=== PATIENT | female | born 1940 | race Caucasian/White ===

== ENCOUNTER 2020-12-12 14:30 | Observation (INO) ==
--- NOTE | 2020-12-12 14:43 | Emergency Department Note ---
Impression & Plan Acute GI bleeding, Supratherapeutic INR, Abdominal pain, History of cerebrovascular accident ED Provider Note NAME: REENA UP AGE: 80 SEX: F : 1940 ARRIVES VIA: Ambulance INFORMANT: Patient, ED PROVIDER(S): Roman Zheng MD Chief Complaint: Abdominal pain, GI bleeding HPI: Patient does present with the above complaints though the patient does have difficulty with speaking at baseline due to a concern for prior stroke 11 years ago. The patient is accompanied by family member. When further discussing the patient does not complain of chest pain shortness of breath headache nausea or vomiting. The patient is unsure that she has had blood in the urine. Patient does take Coumadin ever since the stroke. Patient is not had any fevers. The patient only had pain beginning this morning and it is described as in the lower abdomen and moving upwards. No known Covid type symptoms. The patient symptoms of stayed about the same during the day. They have not taken anything for it at home. The patient last took her Coumadin last evening. ROS: See HPI for pertinent positives and negatives. A total of 10 systems were reviewed and otherwise negative. Past medical history: See below Surgical history: See below Social history: See below Physical Exam: GENERAL: Wearing a mask. NAD, non-toxic. EYE EXAM: Normal conjunctiva. PERRL, no anisocoria and EOM's grossly intact w/o pain. NECK: Supple, no nuchal rigidity, no adenopathy, non-tender. No signs of meningismus. LUNGS: Clear to auscultation. Normal chest wall mechanics. HEART: Cardiac and regular, no MRG. ABDOMEN: Abdomen soft, mild diffuse discomfort without peritonitis, normo-active bowel sounds, no masses, no rebound or guarding. BACK: No CVA TTP. SKIN: No rashes and no bruising. Rectal: Dark reddish stool, heme positive UPPER EXTREMITIES: Upper extremities are grossly normal. LOWER EXTREMITIES: Grossly normal, no edema. NEURO EXAM: Awake and alert, follows basic commands, cranial nerves II-XII grossly intact, aphasic, moves all 4 extremities on command w/o issue. Differential diagnoses: Diverticulosis, AVM, coagulopathy, colitis, inflammatory bowel disease, malignancy, Paulette-Velazquez tear, esophagitis, peptic ulcer disease, variceal bleed, gastritis, epistaxis, fissure, hemorrhoids, as well as other pathologies. Course: Patient was seen and evaluated the bedside. Full history physical exam was performed. EKG: Indication: Possible GI bleeding Sinus tachycardia, rate of 108, normal intervals, normal axis, no obvious ST changes. Imaging Studies: See below Cardiac monitoring: An order was placed for continuous cardiac monitoring. The monitor shows a rate of 106 with sinus tachycardia rhythm. MDM: Patient did present with concern for abdominal pain and GI bleeding. The patient does take Coumadin. Patient does live by herself. Blood was obtained and the patient's initial hemoglobin is unremarkable. The patient was initially started on a PPI bolus and drip. Therefore a rectal exam which did show reddish blood but not bright red blood and was heme positive. CT negative for bowel obstruction or free air. No acute inflammatory change or evidence of diverticulitis. The patient's coags did eventually come back and are greater than 10.7. Given this with the active bleeding given in light of her normal hemoglobin the patient was ordered 10 of IV vitamin K. I did discuss the patien t with the on-call hospitalist Dr. Shea and the patient was admitted to the medicine service. I did discuss that it would likely would be of benefit to repeat hemoglobin to see if this is a sentinel bleed and whether not the patient would benefit from either PCC's and/or transfusion. Patient was admitted to the medicine service. Critical Care: I have personally spent 57 minutes of critical care time in direct management of this patient. This includes bedside care, interpretation of diagnostic studies, and testing, discussion with consultants, patient, and family members, and other require inpatient management activities. This 57 minutes is in excess of all separately billable procedures. Past Med/Surg History Medical History (Updated 12/12/20 @ 19:15 by Roman Zheng MD) Atrial fibrillation Cerebral atherosclerosis GERD (gastroesophageal reflux disease) Heart disease Hyperlipemia Hypertension Hypokalemia Stroke Social History Smoking Status: Unknown if ever smoked Feels Safe at Home: Yes Allergies Allergies Allergy/AdvReac Type Severity Reaction Status Date / Time No Known Allergies Allergy Verified 12/12/20 15:27 Home Meds Home Medications Medication Instructions Recorded Confirmed amlodipine 10 mg tablet 10 mg PO DAILY 11/22/20 12/12/20 atorvastatin 10 mg tablet 10 mg PO DAILY 11/22/20 12/12/20 ergocalciferol (vitamin D2) 1,250 50,000 unit PO DAILY 11/22/20 12/12/20 mcg (50,000 unit) capsule ezetimibe 10 mg tablet 10 mg PO DAILY 11/22/20 12/12/20 omeprazole 20 mg capsule,delayed 20 mg PO DAILY 11/22/20 12/12/20 release potassium chloride 20 mEq 20 meq PO DAILY 11/22/20 12/12/20 tablet,extended release(part/cryst) tramadol 50 mg tablet 50 mg PO Q6H PRN 11/22/20 12/12/20 warfarin 2 mg tablet 2 mg PO DAILY 11/22/20 12/12/20 Results & Data (ED) Vital Signs Vital Signs - 24 hr 12/12/20 14:37 12/12/20 14:39 12/12/20 14:40 Temperature 36.9 C Temperature Source Oral Pulse Rate 102 H 105 H 104 H Pulse Rate [Radial] 110 H Pulse Rate from SpO2 Sensor 106 H 105 H 103 H Pulse Rhythm [Radial] Regular Pulse Strength [Radial] Normal Respiratory Rate 20 18 22 Respiratory Depth Normal Blood Pressure 154/66 H Blood Pressure [Right Arm] 154/66 H Blood Pressure Mean 95 Blood Pressure Mean [Right Arm] 95 Pulse Oximetry 94 93 93 Oxygen Delivery Method Room Air Sepsis Recent Fever Within 48 Hours Sepsis New/Unexplained Change in Mental Status Sepsis Action Taken by Nursing 12/12/20 14:45 12/12/20 14:50 12/12/20 15:00 Temperature 36.9 C Temperature Source Oral Pulse Rate 110 H 110 H 110 H Pulse Rate [Radial] Pulse Rate from SpO2 Sensor 110 H Pulse Rhythm [Radial] Pulse Strength [Radial] Respiratory Rate 14 21 20 Respiratory Depth Normal Blood Pressure 154/64 H Blood Pressure [Right Arm] Blood Pressure Mean 94 Blood Pressure Mean [Right Arm] Pulse Oximetry 96 94 Oxygen Delivery Method Room Air Room Air Sepsis Recent Fever Within 48 Hours No Sepsis New/Unexplained Change in Mental Status No Sepsis Action Taken by Nursing No Action Required 12/12/20 15:10 12/12/20 15:20 12/12/20 15:30 Temperature Temperature Source Pulse Rate 102 H 119 H 102 H Pulse Rate [Radial] Pulse Rate from SpO2 Sensor 102 H 118 H Pulse Rhythm [Radial] Pulse Strength [Radial] Respiratory Rate 18 19 26 H Respiratory Depth Blood Pressure Blood Pressure [Right Arm] Blood Pressure Mean Blood Pressure Mean [Right Arm] Pulse Oximetry 93 94 Oxygen Delivery Method Sepsis Recent Fever Within 48 Hours Sepsis New/Unexplained Change in Mental Status Sepsis Action Taken by Nursing 12/12/20 15:40 12/12/20 15:50 12/12/20 16:00 Temperature Temperature Source Pulse Rate 101 H 103 H 105 H Pulse Rate [Radial] Pulse Rate from SpO2 Sensor Pulse Rhythm [Radial] Pulse Strength [Radial] Respiratory Rate 17 20 21 Respiratory Depth Blood Pressure Blood Pressure [Right Arm] Blood Pressure Mean Blood Pressure Mean [Right Arm] Pulse Oximetry Oxygen Delivery Method Sepsis Recent Fever Within 48 Hours Sepsis New/Unexplained Change in Mental Status Sepsis Action Taken by Nursing 12/12/20 16:22 12/12/20 16:23 12/12/20 16:30 Temperature Temperature Source Pulse Rate 109 H 107 H 112 H Pulse Rate [Radial] Pulse Rate from SpO2 Sensor 107 H 113 H Pulse Rhythm [Radial] Pulse Strength [Radial] Respiratory Rate 20 18 17 Respiratory Depth Blood Pressure 140/80 Blood Pressure [Right Arm] Blood Pressure Mean 100 Blood Pressure Mean [Right Arm] Pulse Oximetry 92 92 Oxygen Delivery Method Sepsis Recent Fever Within 48 Hours Sepsis New/Unexplained Change in Mental Status Sepsis Action Taken by Nursing 12/12/20 16:40 12/12/20 16:50 12/12/20 17:00 Temperature Temperature Source Pulse Rate 109 H 110 H 115 H Pulse Rate [Radial] Pulse Rate from SpO2 Sensor 109 H 110 H Pulse Rhythm [Radial] Pulse Strength [Radial] Respiratory Rate 15 21 18 Respiratory Depth Blood Pressure Blood Pressure [Right Arm] Blood Pressure Mean Blood Pressure Mean [Right Arm] Pulse Oximetry 92 92 Oxygen Delivery Method Sepsis Recent Fever Within 48 Hours Sepsis New/Unexplained Change in Mental Status Sepsis Action Taken by Nursing 12/12/20 17:10 12/12/20 17:20 12/12/20 17:30 Temperature Temperature Source Pulse Rate 108 H 108 H 121 H Pulse Rate [Radial] Pulse Rate from SpO2 Sensor 121 H Pulse Rhythm [Radial] Pulse Strength [Radial] Respiratory Rate 17 20 31 H Respiratory Depth Blood Pressure Blood Pressure [Right Arm] Blood Pressure Mean Blood Pressure Mean [Right Arm] Pulse Oximetry 94 Oxygen Delivery Method Sepsis Recent Fever Within 48 Hours Sepsis New/Unexplained Change in Mental Status Sepsis Action Taken by Nursing 12/12/20 17:40 12/12/20 17:50 12/12/20 17:59 Temperature Temperature Source Pulse Rate 108 H 104 H 101 H Pulse Rate [Radial] Pulse Rate from SpO2 Sensor 108 H 104 H 101 H Pulse Rhythm [Radial] Pulse Strength [Radial] Respiratory Rate 21 18 17 Respiratory Depth Blood Pressure 125/65 Blood Pressure [Right Arm] Blood Pressure Mean 85 Blood Pressure Mean [Right Arm] Pulse Oximetry 93 93 93 Oxygen Delivery Method Sepsis Recent Fever Within 48 Hours Sepsis New/Unexplained Change in Mental Status Sepsis Action Taken by Nursing 12/12/20 18:00 12/12/20 18:10 12/12/20 18:20 Temperature Temperature Source Pulse Rate 105 H 117 H 113 H Pulse Rate [Radial] Pulse Rate from SpO2 Sensor 105 H 117 H Pulse Rhythm [Radial] Pulse Strength [Radial] Respiratory Rate 19 25 H 15 Respiratory Depth Blood Pressure Blood Pressure [Right Arm] Blood Pressure Mean Blood Pressure Mean [Right Arm] Pulse Oximetry 93 94 Oxygen Delivery Method Sepsis Recent Fever Within 48 Hours Sepsis New/Unexplained Change in Mental Status Sepsis Action Taken by Nursing 12/12/20 18:30 12/12/20 18:40 12/12/20 18:50 Temperature Temperature Source Pulse Rate 106 H 107 H 109 H Pulse Rate [Radial] Pulse Rate from SpO2 Sensor Pulse Rhythm [Radial] Pulse Strength [Radial] Respiratory Rate 20 25 H 20 Respiratory Depth Blood Pressure Blood Pressure [Right Arm] Blood Pressure Mean Blood Pressure Mean [Right Arm] Pulse Oximetry Oxygen Delivery Method Sepsis Recent Fever Within 48 Hours Sepsis New/Unexplained Change in Mental Status Sepsis Action Taken by Nursing 12/12/20 19:00 Temperature Temperature Source Pulse Rate 106 H Pulse Rate [Radial] Pulse Rate from SpO2 Sensor Pulse Rhythm [Radial] Pulse Strength [Radial] Respiratory Rate 17 Respiratory Depth Blood Pressure Blood Pressure [Right Arm] Blood Pressure Mean Blood Pressure Mean [Right Arm] Pulse Oximetry Oxygen Delivery Method Sepsis Recent Fever Within 48 Hours Sepsis New/Unexplained Change in Mental Status Sepsis Action Taken by Longterm Medications Current Medication List: was personally reviewed by me Laboratory Data Attestation: I reviewed the patient's lab results. Result diagrams: 12/12/20 15:51 12/12/20 15:51 Lab Results 12/12/20 12/12/20 12/12/20 Range/Units 15:51 15:51 15:51 WBC 9.44 (4.8-10.8) K/uL RBC 4.64 (4.2-5.4) M/uL Hgb 13.3 (12.0-16.0) g/dL Hct 39.9 (37-47) % MCV 86.0 (80-100) fL MCH 28.7 (25-34) pg MCHC 33.3 (32-36) g/dL RDW Std Deviation 43.5 (36.4-46.3) fL RDW Coeff of Dayron 13.8 (11.5-14.5) % Plt Count 282 (130-400) K/uL MPV 10.3 (7.4-10.4) fL Immature Gran % (Auto) 0.3 % Neut % (Auto) 76.8 % Lymph % (Auto) 13.3 % [place] % (Auto) 9.2 % Eos % (Auto) 0.2 % Baso % (Auto) 0.2 % Neut # (Auto) 7.24 H (1.4-6.5) K/uL Lymph # (Auto) 1.26 (1.2-3.4) K/uL [place] # (Auto) 0.87 H (0.11-0.59) K/uL Eos # (Auto) 0.02 (0-0.5) K/uL Baso # (Auto) 0.02 (0-0.2) K/uL Immature Gran # (Auto) 0.03 H (0.00-0.02) K/uL PT Cancelled INR Cancelled APTT Cancelled PTT Ratio Cancelled Sodium (136-145) mmol/L Potassium (3.5-5.1) mmol/L Chloride (98-107) mmol/L Carbon Dioxide (21-32) mmol/L Anion Gap (3-11) BUN (7-18) mg/dl Creatinine (0.6-1.2) mg/dl Est Cr Clr Drug Dosing Est GFR ( Amer) Est GFR (Non-Af Amer) BUN/Creatinine Ratio (10-20) Glucose (70-99) mg/dl Calcium (8.5-10.1) mg/dl Total Bilirubin (0.2-1) mg/dl AST (15-37) U/L ALT (12-78) U/L Alkaline Phosphatase (45-117) U/L Total Protein (6.4-8.2) gm/dl Albumin (3.4-5.0) gm/dl Globulin (2.5-4.0) gm/dl Albumin/Globulin Ratio (0.9-2) Lipase (73-393) U/L POC Stool Occult Blood (Negative) Blood Type O Positive Antibody Screen NEGATIVE 12/12/20 12/12/20 12/12/20 Range/Units 15:51 16:45 Unknown WBC (4.8-10.8) K/uL RBC (4.2-5.4) M/uL Hgb (12.0-16.0) g/dL Hct (37-47) % MCV (80-100) fL MCH (25-34) pg MCHC (32-36) g/dL RDW Std Deviation (36.4-46.3) fL RDW Coeff of Dayron (11.5-14.5) % Plt Count (130-400) K/uL MPV (7.4-10.4) fL Immature Gran % (Auto) % Neut % (Auto) % Lymph % (Auto) % [place] % (Auto) % Eos % (Auto) % Baso % (Auto) % Neut # (Auto) (1.4-6.5) K/uL Lymph # (Auto) (1.2-3.4) K/uL [place] # (Auto) (0.11-0.59) K/uL Eos # (Auto) (0-0.5) K/uL Baso # (Auto) (0-0.2) K/uL Immature Gran # (Auto) (0.00-0.02) K/uL PT > 90.0 H INR > 10.7 H* APTT 138.3 H* PTT Ratio 5.3 Sodium 138 (136-145) mmol/L Potassium 4.5 (3.5-5.1) mmol/L Chloride 106 (98-107) mmol/L Carbon Dioxide 26 (21-32) mmol/L Anion Gap 7.0 (3-11) BUN 19 H (7-18) mg/dl Creatinine 0.56 L (0.6-1.2) mg/dl Est Cr Clr Drug Dosing Not Reportable Est GFR ( Amer) 102.8 Est GFR (Non-Af Amer) 88.7 BUN/Creatinine Ratio 33.7 H (10-20) Glucose 103 H (70-99) mg/dl Calcium 9.4 (8.5-10.1) mg/dl Total Bilirubin 0.7 (0.2-1) mg/dl AST 18 (15-37) U/L ALT 18 (12-78) U/L Alkaline Phosphatase 112 (45-117) U/L Total Protein 7.3 (6.4-8.2) gm/dl Albumin 3.3 L (3.4-5.0) gm/dl Globulin 4.0 (2.5-4.0) gm/dl Albumin/Globulin Ratio 0.8 L (0.9-2) Lipase 116 (73-393) U/L POC Stool Occult Blood Negative (Negative) Blood Type Antibody Screen Administered Medications Pantoprazole Sodium 40 mg/ (Dextrose) 100 mls @ 20 mls/hr IV Q5H ROGER Stop: 01/11/21 15:04 Last Admin: 12/12/20 16:35 Dose: 8 mg/hr, 20 mls/hr Documented by: [id number] Discontinued Medications Sodium Chloride (Nss) 500 mls @ 999 mls/hr IV .Q31M ROGER Stop: 12/12/20 15:30 Last Admin: 12/12/20 15:35 Dose: 999 mls/hr Documented by: [id number] Pantoprazole Sodium (Protonix Bolus/Drip) 0 mls @ 1 mls/hr IV ONE STA Stop: 12/12/20 14:51 Last Admin: 12/12/20 16:35 Dose: 1 mls/hr Documented by: [id number] Pantoprazole Sodium 80 mg/ (Dextrose) 120 mls @ 400 mls/hr IV NOW ONE Stop: 12/12/20 15:07 Last Admin: 12/12/20 15:34 Dose: 400 mls/hr Documented by: [id number] Phytonadione 10 mg/ Sodium (Chloride) 51 mls @ 102 mls/hr IV ONE ONE Stop: 12/12/20 18:03 Last Admin: 12/12/20 19:01 Dose: 102 mls/hr Documented by: [id number] Ioversol (Optiray 320 100ml) 89 ml IV ONCE ONE Stop: 12/12/20 16:18 Last Admin: 12/12/20 16:17 Dose: 89 ml Documented by: [id number] Imaging Data Radiologist's Impression: Abdomen/Pelvis CT 12/12/20 14:50 CT abd pelvis IV con only CLINICAL HISTORY: Abdominal pain and GI bleeding. COMPARISON STUDY: None. TECHNIQUE: The patient was scanned in a dynamic helical fashion during intravenous administration of 89 cc of Optiray 320 A dose lowering technique was utilized adhering to the principles of ALARA. CT DOSE: 318.63 mGy.cm FINDINGS: The examination is motion compromised Lower chest: The heart is normal in size and configuration, without pericardial effusion. The lung bases and pleural spaces are clear. Liver: The contrast-enhanced liver is normal in size, contour, and attenuation. There is no intrahepatic biliary ductal dilatation. The hepatic veins and portal veins are patent. Gallbladder: Contracted Spleen: Normal in size and attenuation. Pancreas: Unremarkable. Adrenal glands: There is minor adrenal gland thickening Kidneys: There is symmetric renal cortical enhancement. The kidneys are normal in size without hydronephrosis. Bowel: There are no transition zones indicate bowel obstruction. There is colonic diverticulosis. There are no acute peridiverticular inflammatory changes. By history the appendix is surgically absent. Peritoneum: There is no intraperitoneal free air or abdominal ascites. Vasculature: The abdominal aorta is normal in course and caliber. Adenopathy: None. Pelvic viscera: The uterus is surgically absent. Skeletal structures: No destructive osseous lesions are seen. IMPRESSION: 1. No evidence of bowel obstruction. No evidence of free air 2. Colonic diverticulosis. No evidence of acute diverticulitis 3. No acute inflammatory changes ACT 112: Negative or not required by law. Electronically signed by: Juan Carlos Rodriguez M.D. 12/12/2020 4:54 PM Discharge Plan Visit Data Chief Complaint: Abdominal Pain ED Provider: Roman Zheng Discharge Problem: Acute GI bleeding, Supratherapeutic INR, Abdominal pain, History of cerebrovascular accident Forms Stand Alone Forms: [employer] Prescriptions Prescriptions: No Action tramadol 50 mg tablet 50 mg PO Q6H PRN (Reason: Pain) RF: 0 ergocalciferol (vitamin D2) 1,250 mcg (50,000 unit) capsule 50,000 unit PO DAILY RF: 0 omeprazole 20 mg capsule,delayed release(DR/EC) 20 mg PO DAILY RF: 0 warfarin 2 mg tablet 2 mg PO DAILY RF: 0 ezetimibe 10 mg tablet 10 mg PO DAILY RF: 0 atorvastatin 10 mg tablet 10 mg PO DAILY RF: 0 amlodipine 10 mg tablet 10 mg PO DAILY RF: 0 potassium chloride [Klor-Con M20] 20 mEq tablet,ER particles/crystals 20 meq PO DAILY RF: 0 Discharge Problem: Abdominal pain Qualifiers: Abdominal location: generalized Qualified Code(s): R10.84 - Generalized abdominal pain
[2020-12-12] MEDS ORDERED: ONDANSETRON INJ 2 MG/ML 2 ML VIAL IV STA (14:50)
[2020-12-12] MEDS ORDERED: PANTOprazole 80 MG in DEXTROSE 5% 100 ML IV ONE (14:50)
[2020-12-12] MEDS ORDERED: PANTOPRAZOLE BOLUS/DRIP 1 EA IV STA (14:50)
[2020-12-12] MEDS ORDERED: SODIUM CHLORIDE 0.9% 500 ML IV SCH (15:00)
[2020-12-12 15:59] LABS: Basophils # (auto) 0.02 K/uL (0-0.2); Basophils % (auto) 0.2 %; Eosinophils # (auto) 0.02 K/uL (0-0.5); Eosinophils % (auto) 0.2 %; Hematocrit (blood only) 39.9 % (37-47); Hemoglobin 13.3 g/dL (12.0-16.0); Immature Granulocytes # (auto) 0.03 K/uL (0.00-0.02); Immature Granulocytes % (auto) 0.3 %; Lymphocytes # (auto) 1.26 K/uL (1.2-3.4); Lymphocytes % (auto) 13.3 %; Mean Corpuscular Hemoglobin 28.7 pg (25-34); Mean Corpuscular Hgb Conc 33.3 g/dL (32-36); Mean Platelet Volume 10.3 fL (7.4-10.4); Monocytes # (auto) 0.87 K/uL (0.11-0.59); Monocytes % (auto) 9.2 %; Neutrophils # (auto) 7.24 K/uL (1.4-6.5); Neutrophils % (auto) 76.8 %; Platelet Count 282 K/uL (130-400); RDW Coefficient of Variation 13.8 % (11.5-14.5); RDW Standard Deviation 43.5 fL (36.4-46.3); Red Blood Count 4.64 M/uL (4.2-5.4); White Blood Count 9.44 K/uL (4.8-10.8)
[2020-12-12] MEDS ORDERED: OPTIRAY 320 100ml IV ONE (16:17)
[2020-12-12 16:19] LABS: Alanine Aminotransferase 18 U/L (12-78); Albumin Level 3.3 gm/dl (3.4-5.0); Aspartate Aminotransferase 18 U/L (15-37); BUN Creatinine Ratio 33.7 (10-20); Blood Urea Nitrogen 19 mg/dl (7-18); Calcium 9.4 mg/dl (8.5-10.1); Carbon Dioxide 26 mmol/L (21-32); Chloride 106 mmol/L (98-107); Est GFR (African American) 102.8; Est GFR (Non-African American) 88.7; Glucose 103 mg/dl (70-99); Lipase 116 U/L (73-393); Potassium 4.5 mmol/L (3.5-5.1); Sodium 138 mmol/L (136-145)
[2020-12-12 16:22] LABS: Albumin Globulin Ratio 0.8 (0.9-2); Alkaline Phosphatase 112 U/L (45-117); Bilirubin,Total 0.7 mg/dl (0.2-1); Total Protein 7.3 gm/dl (6.4-8.2)
[2020-12-12] MEDS: PANTOprazole 40 MG in DEXTROSE 5% 100 ML IV SCH ×4 (16:35→23:15)
--- NOTE | 2020-12-12 16:55 | CT Scan Report ---
CT abd pelvis IV con only CLINICAL HISTORY: Abdominal pain and GI bleeding. COMPARISON STUDY: None. TECHNIQUE: The patient was scanned in a dynamic helical fashion during intravenous administration of 89 cc of Optiray 320 A dose lowering technique was utilized adhering to the principles of ALARA. CT DOSE: 318.63 mGy.cm FINDINGS: The examination is motion compromised Lower chest: The heart is normal in size and configuration, without pericardial effusion. The lung ba ses and pleural spaces are clear. Liver: The contrast-enhanced liver is normal in size, contour, and attenuation. There is no intrahepa tic biliary ductal dilatation. The hepatic veins and portal veins are patent. Gallbladder: Contracted Spleen: Normal in size and attenuation. Pancreas: Unremarkable. Adrenal glands: There is minor adrenal gland thickening Kidneys: There is symmetric renal cortical enhancement. The kidneys are normal in size without hydron ephrosis. Bowel: There are no transition zones indicate bowel obstruction. There is colonic diverticulosis. The re are no acute peridiverticular inflammatory changes. By history the appendix is surgically absent. Peritoneum: There is no intraperitoneal free air or abdominal ascites. Vasculature: The abdominal aorta is normal in course and caliber. Adenopathy: None. Pelvic viscera: The uterus is surgically absent. Skeletal structures: No destructive osseous lesions are seen. IMPRESSION: 1. No evidence of bowel obstruction. No evidence of free air 2. Colonic diverticulosis. No evidence of acute diverticulitis 3. No acute inflammatory changes ACT 112: Negative or not required by law. Electronically signed by: Juan Carlos Rodriguez M.D. 12/12/2020 4:54 PM
[2020-12-12 17:17] LABS: Partial Thromboplastin Ratio 5.3
[2020-12-12 17:27] LABS: Prothrombin Time > 90.0 Seconds (9.0-12.0)
[2020-12-12 17:31] LABS: INR > 10.7 (0.9-1.1); Partial Thromboplastin Time 138.3 Seconds (21.0-31.0)
[2020-12-12] MEDS ORDERED: SODIUM CHLORIDE 0.9% 1000ML 1,000 ML IV ONE (17:34)
[2020-12-12] MEDS ORDERED: PHYTONADIONE 10 MG in SODIUM CHLORIDE 0.9% 50 ML IV ONE (17:34)
--- NOTE | 2020-12-12 18:53 | History & Physical Report ---
Date of Service December 12, 2020 Assessment & Plan (1) GI bleed: GI bleed - admit to telemetry - Supratherapeutic INR of 10.7- patient receiving Vitamin K in the ED. - Recheck H&H and INR at 0100. - CBC in AM - Consult GI - NPO- hold home oral meds - Zofran, IV pantoprazole - Continue IVF (2) Supratherapeutic INR: - as above - Hold Coumadin (3) Thoracic compression fracture: Following outpatient with Dr. Clay. (4) Pulmonary nodules/lesions, multiple: Incidental findings on thoracic CT - MRI pending as outpatient to r/o metastatic disease to spine. - Needs further work-up as an outpatient. (5) GERD (gastroesophageal reflux disease): Hx of GERD - pantoprazole while inpatient (6) Hypertension: On amlodipine as outpatient - Will hold oral meds - IV hydralazine ordered for systolic BP >160 and diastolic >100. (7) Stroke: Hx of CVA 11 years ago - Right sided weakness- patient walks with a cane - Speech greatly affected- patient's daughter helps with communication - no difficulty eating or swallowing per the patient's daughter (8) Atrial fibrillation: - Hold coumadin d/t GI bleed - tachycardic at 106 with baseline murmur- continue to monitor - abnormal ECG- ECHO ordered (9) DVT prophylaxis: - SCD knee high - Hold chemical prophylaxis d/t GI bleed Admission and Anticipated Discharge Date Admission Date: 12/12/20 History of Present Illness Chief Complaint: abdominal pain and blood in stool Primary Care Provider: Paras Edmundoshima 80 year old female presents to the ED this afternoon with her daughter with c/o abdominal pain and blood in stool which started last evening. Patient has a hx of CVA 11 years ago, and has baseline difficulty with speaking. Her daughter is able to fill in her history today. Patient c/o some n/v with the abdominal pain. She is on coumadin for CVA and hx of a-fib, and her INR was noted to be 10.7 on admission to the ED. She was administered Vit K while in the ED. Patient does have a hx of GERD for which she takes omeprazole. She also has a hx of CAD and heart murmur, hyperlipidemia, HTN, and hypokalemia. Most recently, the patient was evaluated by Dr. Clay for thoracic compression fractures and kyphosis. CT of the thoracic spine was ordered and performed on 12/07/20. Incidental finding of multifocal irregular masses of the bilateral upper lobes were noted. Findings suspicious for bronchogenic malignancy. MRI of the spine with and without contrast has been ordered by Dr. Clya to r/o possible metastatic disease of the thoracic spine at the level of compression fractures at T6, T10, and T11. The patient's daughter also reports her mother has 70% carotid stenosis found on recent imaging performed by PCP. She reports her mother declined further evaluation or treatment for the stenosis. Allergies Allergy/AdvReac Type Severity Reaction Status Date / Time No Known Allergies Allergy Verified 12/12/20 15:27 Home Medications Medication Instructions Recorded Confirmed Type amlodipine 10 mg tablet 10 mg PO DAILY 11/22/20 12/12/20 History atorvastatin 10 mg tablet 10 mg PO DAILY 11/22/20 12/12/20 History ergocalciferol (vitamin D2) 1,250 50,000 unit PO DAILY 11/22/20 12/12/20 History mcg (50,000 unit) capsule ezetimibe 10 mg tablet 10 mg PO DAILY 11/22/20 12/12/20 History omeprazole 20 mg capsule,delayed 20 mg PO DAILY 11/22/20 12/12/20 History release potassium chloride 20 mEq 20 meq PO DAILY 11/22/20 12/12/20 History tablet,extended release(part/cryst) tramadol 50 mg tablet 50 mg PO Q6H PRN 11/22/20 12/12/20 History warfarin 2 mg tablet 2 mg PO DAILY 11/22/20 12/12/20 History Past Med/Surg History Medical History (Updated 12/12/20 @ 19:15 by Roman Zheng MD) Atrial fibrillation Cerebral atherosclerosis GERD (gastroesophageal reflux disease) Heart disease Hyperlipemia Hypertension Hypokalemia Stroke Social History Smoking Status: Former smoker Hx Alcohol Use: No Hx Substance Use: No Preferred Language: Swedish Communication Ability: Unable Communication Ability Comment: Since Stroke Sql Database Programmer Required: No Beliefs That Will Affect Care: None Current Living Situation: Alone Feels Safe at Home: Yes Assistive Devices: Cane, Denture - Upper, Denture - Lower and Glasses Review of Systems Constitutional: no fever and no chills headache Eyes: no worsening vision Ear, Nose, Mouth, Throat: no dizziness Respiratory: no dyspnea Cardiovascular: no chest pain Gastrointestinal: + abdominal pain, + nausea, + vomiting and + blood in stools Neurologic: right sided weakness Physical Exam Physical Exam: Temp Pulse Resp BP Pulse Ox 36.9 C 107 H 25 H 125/65 94 12/12/20 14:45 12/12/20 18:40 12/12/20 18:40 12/12/20 17:59 12/12/20 18:10 Constitutional: + thin; no acute distress ENMT: Ears: no hearing impairment Neck: trachea midline Thyroid: normal thyroid Respiratory: no respiratory distress Auscultation: + diminished lung sounds Cardiovascular: Rate/Rhythm: + tachycardic Heart Sounds: + murmur Extremities: + edema Gastrointestinal (Abdomen): Inspection/Auscultation: normal bowel sounds Percussion/Palpation: abdomen soft; abdomen nontender Skin: no rashes, warm and dry Psychiatric: A+Ox3, euthymic affect Results & Data Results & Data ([facility]) Vital Signs (Past 12 Hours) Vital Signs Temp Pulse Pulse Resp BP BP Pulse Ox 12/12/20 18:40 107 H 25 H 12/12/20 18:30 106 H 20 12/12/20 18:20 113 H 15 12/12/20 18:10 117 H 25 H 94 12/12/20 18:00 105 H 19 93 12/12/20 17:59 101 H 17 125/65 93 12/12/20 17:50 104 H 18 93 12/12/20 17:40 108 H 21 93 12/12/20 17:30 121 H 31 H 94 12/12/20 17:20 108 H 20 12/12/20 17:10 108 H 17 12/12/20 17:00 115 H 18 12/12/20 16:50 110 H 21 92 12/12/20 16:40 109 H 15 92 12/12/20 16:30 112 H 17 92 12/12/20 16:23 107 H 18 140/80 92 12/12/20 16:22 109 H 20 12/12/20 16:00 105 H 21 12/12/20 15:50 103 H 20 12/12/20 15:40 101 H 17 12/12/20 15:30 102 H 26 H 12/12/20 15:20 119 H 19 94 12/12/20 15:10 102 H 18 93 12/12/20 15:00 110 H 20 12/12/20 14:50 110 H 21 94 12/12/20 14:45 36.9 C 110 H 14 154/64 H 96 12/12/20 14:40 36.9 C 104 H 110 H 22 154/66 H 93 12/12/20 14:39 105 H 18 93 12/12/20 14:37 102 H 20 154/66 H 94 Supervising Physician Co-Signing Physician Notes Patient was seen and examined independently I discussed the case with Bekah OTT I reviewed pertinent past medical social family history and also the plan of care and agree with the plan of care. Patient is nonverbal but she is very bright awake and understanding she uses hand gestures and facial expressions to denote her feelings or answers my questions. Spite concern for GI bleeding she has no distress may be very mild diffuse abdominal pain on examination. Her daughter is at the bedside and was updated her daughter signed consent for her for blood in case it would be needed. Vital signs are stable exam with mild abdominal pain she is not pale she is not tachycardic Continue with supportive care reversing anticoagulation discussions for future anticoagulations will be had once we have this event settled. Patient was initiated on Protonix drip which will be continued will likely transition to twice daily Protonix at our earliest opportunity Any exceptions will be noted below PG Care Time/CCT Total # of Minutes Spent Total Time Spent with Patient: Total time spent is greater than 50% in coordination of care (as documented) at patient's floor/unit and/or counseling patient: Coding Level of Care Code 58018 Initial Inpt Care Lvl 2 Diagnoses GI bleed K92.2 Supratherapeutic INR R79.1 Thoracic compression fracture S22.000A Pulmonary nodules/lesions, multiple R91.8 GERD (gastroesophageal reflux disease) K21.9 Hypertension I10 Stroke I63.9 Atrial fibrillation I48.91 DVT prophylaxis Z29.9
[2020-12-12 21:44] LABS: Influenza A virus by PCR Negative (Neg); Influenza B virus by PCR Negative (Neg); RSV by PCR Negative (Neg); SARS CoV2 RNA(COVID-19) InHosp NEGATIVE (Negative)
[2020-12-12] MEDS ORDERED: hydrALAZINE HCL 20 MG/ML VIAL IV PRN (22:44)
[2020-12-12] MEDS: SODIUM CHLORIDE 0.9% 1000ML 1,000 ML IV SCH (23:12)
[2020-12-13 01:07] LABS: Hematocrit (blood only) 37.3 % (37-47); Hemoglobin 12.7 g/dL (12.0-16.0)
[2020-12-13 01:25] LABS: INR 1.8 (0.9-1.1); Prothrombin Time 17.4 Seconds (9.0-12.0)
[2020-12-13 01:27] LABS: BUN Creatinine Ratio 29.7 (10-20); Calcium 8.1 mg/dl (8.5-10.1); Creatinine Clr Calc Pharmacy 89.3 ml/min; Est GFR (African American) 122.3; Est GFR (Non-African American) 105.5; Potassium 3.5 mmol/L (3.5-5.1)
[2020-12-13] MEDS: PANTOprazole 40 MG in DEXTROSE 5% 100 ML IV SCH (03:27)
[2020-12-13 04:58] LABS: Hemoglobin 12.7 g/dL (12.0-16.0); Mean Corpuscular Hemoglobin 28.5 pg (25-34); Mean Corpuscular Hgb Conc 33.4 g/dL (32-36); Mean Corpuscular Volume 85.2 fL (80-100); Mean Platelet Volume 10.2 fL (7.4-10.4); Platelet Count 275 K/uL (130-400); RDW Coefficient of Variation 13.4 % (11.5-14.5); RDW Standard Deviation 41.8 fL (36.4-46.3); Red Blood Count 4.46 M/uL (4.2-5.4); White Blood Count 10.59 K/uL (4.8-10.8)
[2020-12-13 05:06] LABS: INR 1.5 (0.9-1.1); Prothrombin Time 14.6 Seconds (9.0-12.0)
--- NOTE | 2020-12-13 07:12 | Hospitalist Progress Note ---
Date of Service December 13, 2020 Assessment & Plan (1) GI bleed: GI bleed, by description of melena - Supratherapeutic INR of 10.7- patient received Vitamin K in the ED. -Hemoglobin stable advancing diet - Zofran, IV pantoprazole changed to twice daily bolus form (2) Supratherapeutic INR: -vitamin K given - Hold Coumadin INR is now 1.5 (3) Thoracic compression fracture: Following outpatient with Dr. Clay. (4) Pulmonary nodules/lesions, multiple: Incidental findings on thoracic CT - MRI pending as outpatient to r/o metastatic disease to spine. -No current acute pain in her spine at this time needs further work-up as an outpatient. (5) GERD (gastroesophageal reflux disease): Hx of GERD - pantoprazole while inpatient -Given epigastric discomfort adding Carafate (6) Hypertension: On amlodipine as outpatient -Continue to hold oral meds - IV hydralazine ordered for systolic BP >160 and diastolic >100. (7) Stroke: Hx of CVA 11 years ago - Right sided weakness- patient walks with a cane - Speech greatly affected- patient's daughter helps with communication - no difficulty eating or swallowing per the patient's daughter (8) Atrial fibrillation: - Hold coumadin d/t GI bleed - rate controlled Echo shows hyperdynamic left ventricle aortic sclerosis no stenosis moderate MAC To explore reasoning for Coumadin use versus another novel agent (9) DVT prophylaxis: - SCD knee high - Hold chemical prophylaxis d/t GI bleed Admission and Anticipated Discharge Date Admission Date: December 12, 2020 Subjective pt is pleasant and has no complaints, she did not have significant reduction in blood counts Review of Systems Review of Systems: Mild distress and fatigue no headache, blurry or double vision aphasic can say yes and no, does have some stomach pain no chest pain, pressure or palpitations no shortness of breath, cough or wheezes epigastric abdominal pain, no nausea or vomiting, diarrhea or constipation no dysuria, hematuria or frequency no focal joint pain or swelling no back pain, CVA tenderness or radicular pain no bruising, bleeding or rashes no focal signs of weakness or numbness or altered sensation no complaints of anxiety or depression.. Physical Exam Physical Exam: The patient appeared well nourished and normally developed. Vital signs as documented. Head exam is normocephalic atraumatic no scleral icterus Neck is without JVD, thyromegaly, or carotid bruits. Lungs are clear to auscultation, no focal loss of breath sounds Cardiac exam, Rhythm is regular.. No murmurs, rubs or gallops. Abdominal exam reveals normal bowel sounds, soft epigastric tenderness no rebound no guarding Extremities are nonedematous and both pedal pulses are present Neurologic exam is alert and oriented, no focal loss of strength or sensation Skin is without bruises or rashes Psychologically is without concerns for anxiety or depression Results & Data Results & Data ([facility]) Vital Signs (Past 12 Hours) Vital Signs Temp Pulse Pulse Resp BP BP Pulse Ox 12/13/20 03:23 99.0 F 98 H 24 146/74 H 91 12/12/20 23:52 91 H 12/12/20 23:00 98.6 F 109 H 25 H 149/76 H 12/12/20 22:24 98.2 F 99 H 19 124/99 PG Care Time/CCT Total # of Minutes Spent Total Time Spent with Patient: Total time spent is greater than 50% in coordination of care (as documented) at patient's floor/unit and/or counseling patient: Coding Level of Care Code 53308 Subseq Hosp Care Lvl 3 Diagnoses GI bleed K92.2 Supratherapeutic INR R79.1 Thoracic compression fracture S22.000A Pulmonary nodules/lesions, multiple R91.8 GERD (gastroesophageal reflux disease) K21.9 Hypertension I10 Stroke I63.9 Atrial fibrillation I48.91 DVT prophylaxis Z29.9
[2020-12-13] MEDS: PANTOprazole 40 MG in SYRINGE 0 ML IV SCH ×2 (08:34→22:00)
[2020-12-13] MEDS: SUCRALFATE 1 GM/10 ML UDC PO SCH ×4 (09:57→22:00)
[2020-12-13 11:09] LABS: iSTAT Creatinine 0.5 mg/dl (0.6-1.3); iSTAT Hemoglobin 13.9 g/dl (12.0-16.0); iSTAT Ionized Calcium 1.12 mmol/l (1.12-1.32); iSTAT Potassium 4.6 mmol/L (3.3-5.0)
--- NOTE | 2020-12-13 12:54 | XCELERA ---
[id number]
[2020-12-13] MEDS: SODIUM CHLORIDE 0.9% 1000ML 1,000 ML IV SCH (13:34)
--- NOTE | 2020-12-13 17:29 | Electrocardiogram Report ---
Test Reason : Blood Pressure : / mmHG Vent. Rate : 108 BPM Atrial Rate : 108 BPM P-R Int : 122 ms QRS Dur : 070 ms QT Int : 320 ms P-R-T Axes : 075 065 044 degrees QTc Int : 428 ms Poor data quality, interpretation may be adversely affected Sinus tachycardia Possible Left atrial enlargement Left ventricular hypertrophy with repolarization abnormality Abnormal ECG No previous ECGs available Confirmed by Jose Fernandez ([id number]) on 12/13/2020 5:29:16 PM Referred By: REFERRED SELF Confirmed By:Fabrice Fernandez
--- NOTE | 2020-12-13 17:33 | Electrocardiogram Report ---
Test Reason : Blood Pressure : / mmHG Vent. Rate : 107 BPM Atrial Rate : 107 BPM P-R Int : 172 ms QRS Dur : 074 ms QT Int : 326 ms P-R-T Axes : 079 075 053 degrees QTc Int : 435 ms Sinus tachycardia Left ventricular hypertrophy with repolarization abnormality Abnormal ECG When compared with ECG of 12-DEC-2020 18:22, (unconfirmed) T wave inversion now evident in Inferior leads Confirmed by Jose Fernandez ([id number]) on 12/13/2020 5:33:40 PM Referred By: REFERRED SELF Confirmed By:Fabrice Fernandez
[2020-12-14 01:29] LABS: Hematocrit (blood only) 40.1 % (37-47); Hemoglobin 13.7 g/dL (12.0-16.0); Mean Corpuscular Hemoglobin 28.4 pg (25-34); Mean Corpuscular Hgb Conc 34.2 g/dL (32-36); Mean Corpuscular Volume 83.2 fL (80-100); Platelet Count 298 K/uL (130-400); RDW Coefficient of Variation 13.2 % (11.5-14.5); RDW Standard Deviation 39.9 fL (36.4-46.3); Red Blood Count 4.82 M/uL (4.2-5.4); White Blood Count 12.44 K/uL (4.8-10.8)
[2020-12-14 01:38] LABS: INR 1.1 (0.9-1.1); Prothrombin Time 11.5 Seconds (9.0-12.0)
[2020-12-14 02:06] LABS: BUN Creatinine Ratio 18.3 (10-20); Calcium 7.8 mg/dl (8.5-10.1); Est GFR (African American) 124.9; Est GFR (Non-African American) 107.7; Potassium 2.9 mmol/L (3.5-5.1)
[2020-12-14] MEDS: POTASSIUM CHLORIDE / WTR 10 MEQ/100 ML PLCT IV SCH ×4 (02:43→05:45)
[2020-12-14] MEDS: SODIUM CHLORIDE 0.9% 1000ML 1,000 ML IV SCH (05:24)
[2020-12-14] MEDS: PANTOprazole 40 MG in SYRINGE 0 ML IV SCH (07:59)
[2020-12-14] MEDS: SUCRALFATE 1 GM/10 ML UDC PO SCH ×2 (07:59→12:45)
[2020-12-14] MEDS ORDERED: POTASSIUM CHLORIDE CRTAB 20 MEQ TABCR PO SCH (09:00)
[2020-12-14] MEDS ORDERED: METOPROLOL TARTRATE 25 MG TAB PO SCH (09:45)
--- NOTE | 2020-12-14 10:21 | Discharge Summary ---
Date of Service December 14, 2020 Admission HPI Per Admitting Provider 80 year old female presents to the ED this afternoon with her daughter with c/o abdominal pain and blood in stool which started last evening. Patient has a hx of CVA 11 years ago, and has baseline difficulty with speaking. Her daughter is able to fill in her history today. Patient c/o some n/v with the abdominal pain. She is on coumadin for CVA and hx of a-fib, and her INR was noted to be 10.7 on admission to the ED. She was administered Vit K while in the ED. Patient does have a hx of GERD for which she takes omeprazole. She also has a hx of CAD and heart murmur, hyperlipidemia, HTN, and hypokalemia. Most recently, the patient was evaluated by Dr. Clay for thoracic compression fractures and kyphosis. CT of the thoracic spine was ordered and performed on 12/07/20. Incidental finding of multifocal irregular masses of the bilateral upper lobes were noted. Findings suspicious for bronchogenic malignancy. MRI of the spine with and without contrast has been ordered by Dr. Clay to r/o possible metastatic disease of the thoracic spine at the level of compression fractures at T6, T10, and T11. The patient's daughter also reports her mother has 70% carotid stenosis found on recent imaging performed by PCP. She reports her mother declined further evaluation or treatment for the stenosis. 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 Lungs are clear to auscultation and appear unlabored Cardiac exam, Rhythm is regular.. No murmurs, rubs or gallops. Abdominal exam reveals normal bowel sounds, soft non tender, no masses Extremities are nonedematous and both pedal pulses are normal. Neurologic exam is alert and oriented, is aphasic Skin is without bruises or rashes Psychologically is without concerns for anxiety or depression. Discharge Data Allergies Allergy/AdvReac Type Severity Reaction Status Date / Time No Known Allergies Allergy Verified 12/12/20 15:27 Consultations 12/12/20 17:55 ED Decision to Admit Stat Ordered Studies 12/12/20 14:50 CT abd pelvis IV con only Stat Hospital Course (1) GI bleed: GI bleed, by description of melena - Supratherapeutic INR of 10.7- patient received Vitamin K in the ED. -Hemoglobin stable tolerated advancing diet Will restart Eliquis 2.5 twice daily in 5 days (2) Supratherapeutic INR: -vitamin K given -Patient and family are agreeable to starting Eliquis. Her dose was reduced based on her age of almost being 81 and her body weight being low. Her kidney function is good but will start 2.5 twice daily patient will follow up with her outpatient primary care physician for continued management of her anticoagulation is also in the process of having her abnormal imaging of her c hest worked up. Will not restart her anticoagulation for 5 additional days allowing any gastrointestinal bleeding to fully heal family's understanding that this is a slight risk given her atrial fibrillation and stroke however risk of bleeding is more significant (3) Thoracic compression fracture: Following outpatient with Dr. Clay. (4) Pulmonary nodules/lesions, multiple: Incidental findings on thoracic CT - MRI pending as outpatient to r/o metastatic disease to spine. -No current acute pain in her spine at this time needs further work-up as an outpatient. (5) GERD (gastroesophageal reflux disease): Hx of GERD Have 1 week of Carafate 4 times a day in addition to her proton pump inhibitor (6) Hypertension: On amlodipine as outpatient Resume antihypertensives at time of discharge (7) Stroke: Hx of CVA 11 years ago - Right sided weakness- patient walks with a cane - Speech greatly affected- patient's daughter helps with communication - no difficulty eating or swallowing per the patient's daughter (8) Atrial fibrillation: -Eliquis 2.5 twice daily - rate controlled Echo shows hyperdynamic left ventricle aortic sclerosis no stenosis moderate MAC Home Health Attestation I certify that this patient is under my care and that I, or a physicians technician assistant working with me, had a face to-face encounter that meets the home health [id number] encounter requirements with this patient. The encounter with the patient was in whole, or in part, for the following medical condition, which is the primary reason for home health care (list medical condition): GI bleed on Coumadin I certify that, based on my findings, the following services are medically necessary home health services: My clinical findings support the need for the above services because: Home Safety Assessment PT Eval for Safety and Mobility Skilled Nsg Assessment Teach on Disease Management and Interventions Further, I certify that my clinical findings support that this patient is homebound (i.e. absences from home require considerable and taxing effort and are for medical reasons or mosque services or infrequently or of short duration when for other reasons) because: Transportation Assistance/Unable to Leave Home Unassisted Certification for Home Health Services: Based on the above findings, I certify that this patient is confined to the home and needs intermittent nursing home care, physical therapy and/or speech therapy or continues to need occupational therapy. The patient is under my care, and I have initiated the establishment of the plan of care. This patient will be followed by a physician who will periodically review the plan of care. 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 Please arrive to the office at 10:45 am for your appointment. If you are unable to keep this appointment, please call the office to reschedule at [phone]. ) Diet: Regular Addtl Attending Provider Instructions: Please increase your omeprazole to twice a day for one month and use carafate 4 x a day for one week please call your primary care for a follow up appointment and bring these papers to confirm your medication changes Medication Instructions: Your condition is typically treated with an anticoagulant. Anticoagulants will thin your blood to help prevent new clots. * You should take her medication exactly as directed. * Never skip a dose. * Never take a double dose. If you miss a dose, take it as soon as you remember. Call your Primary Care doctor if you experience any of the following: * Swelling or Pain in your leg * Sudden, continuous pain deep in a muscle * Pain that worsens when you are active or when you stand still for a long time * Chest Pain * Sudden Shortness of Breath * Rapid or pounding heart beat * Fainting * Dizziness * Cough with blood or bloody sputum * Sweating more than normal * Bruises * Heavy or uncontrolled bleeding * Blood in your urine, stool or vomit * Black or tarry stools Caring for Your Self at Home: * Avoid sitting, standing or lying down for long periods without moving your legs and feet * When traveling by car, stop to get out and move around at least once every 3 hours * On long airplane, train or bus rides, get up and move around when possible * If you can't get up, wiggle your toes and tighten your calves to keep your blood moving Follow Up: It is important for you to keep your follow up appointments with your medical provider. Pending Studies at Discharge: No Stand-Alone Forms: [facility], Smoking Cessation Medications and DC Order Prescriptions: New sucralfate 1 gram tablet 1 g PO ACHS Qty: 30 RF: 0 Eliquis 2.5 mg tablet 2.5 mg PO BID Qty: 60 RF: 5 Continued tramadol 50 mg tablet 50 mg PO Q6H PRN (Reason: Pain) RF: 0 ergocalciferol (vitamin D2) 1,250 mcg (50,000 unit) capsule 50,000 unit PO DAILY RF: 0 ezetimibe 10 mg tablet 10 mg PO DAILY RF: 0 atorvastatin 10 mg tablet 10 mg PO DAILY RF: 0 amlodipine 10 mg tablet 10 mg PO DAILY RF: 0 potassium chloride [Klor-Con M20] 20 mEq tablet,ER particles/crystals 20 meq PO DAILY RF: 0 Changed omeprazole 20 mg capsule,delayed release(DR/EC) 20 mg PO BID Qty: 60 RF: 0 Discontinued warfarin 2 mg tablet 2 mg PO DAILY RF: 0 Discharge Orders: Discharge Order (Routine); Ordered 12/14/20 Ordered By: Nico Ojeda/Other Patient Handouts: Sucralfate tablets, Apixaban oral tablets Admission Data Admit Date/Time: 12/12/20 19:19 Attending Provider: Nico Shea Admit Provider: Nico Shea Primary Care Provider: Paras Mccall Other Providers: Nico Shea Other Interventions: Discharge Summary Assessment (RN) Last Done: 12/14/20 14:42 Coding Level of Care Code D/C Day Management >30 mins Diagnoses GI bleed K92.2 Supratherapeutic INR R79.1 Thoracic compression fracture S22.000A Pulmonary nodules/lesions, multiple R91.8 GERD (gastroesophageal reflux disease) K21.9 Hypertension I10 Stroke I63.9 Atrial fibrillation I48.91
[2020-12-14 12:41] LABS: Calcium 8.3 mg/dl (8.5-10.1); Creatinine Clr Calc Pharmacy 46.8 ml/min; Est GFR (African American) 98.9; Est GFR (Non-African American) 85.3; Potassium 3.1 mmol/L (3.5-5.1)
--- NOTE | 2020-12-14 14:22 | Electrocardiogram Report ---
Test Reason : Blood Pressure : / mmHG Vent. Rate : 110 BPM Atrial Rate : 110 BPM P-R Int : 122 ms QRS Dur : 070 ms QT Int : 320 ms P-R-T Axes : 078 070 -10 degrees QTc Int : 433 ms Poor data quality, interpretation may be adversely affected Sinus rhythm with PACs Nonspecific ST abnormality Abnormal ECG When compared with ECG of 13-DEC-2020 05:17, No significant change was found Confirmed by Jose Fernandez ([id number]) on 12/14/2020 2:21:48 PM Referred By: REFERRED SELF Confirmed By:Fabrice Fernandez
[2020-12-15] MEDS ORDERED: PANTOprazole 40 MG TAB PO SCH (09:00)
== END 2020-12-14 15:15 | disposition home health service (06) ==
LOC: ED 14:30 → 1E 19:19 → INTOOBSV 19:19 → 1E 22:24

== ENCOUNTER 2021-01-23 14:04 | Inpatient (IN) ==
[2021-01-23] MEDS ORDERED: SODIUM CHLORIDE 0.9% 1000ML 1,000 ML IV STA (14:50)
--- NOTE | 2021-01-23 14:57 | Emergency Department Note ---
Impression & Plan Weakness, Cough ED Provider Note INFORMANT: Patient, family ED PROVIDER(S): Jonathon Olivo MD CHIEF COMPLAINT: Weakness PLAN: Disposition: Admitted Condition: Good Outpatient prescription management: none Referral: None MEDICAL DECISION MAKING: Patient presents back to emergency department because of weakness. She apparently has not been doing well at home. Family states she is not eating or drinking well. Despite her treatment in ER yesterday she continues to worsen. The patient IV established. She was hydrated with normal saline. Head CT imaging was performed and was negative. EKG did not show any acute findings. Her CBC was unremarkable. INR was improved. The patient's chemistries revealed a mild hypokalemia and hypomagnesemia. These were repleted. I discussed the findings with the family and patient. Family is requesting admission and patient is in agreement. She is not doing well at home. Consultation was made with Dr. Ryan Perez of the [facility] service. Patient was evaluated in the ER for further management. Triage Nursing notes reviewed and agree them. Vital Signs: reviewed and remarkable for no significant abnormalities Differential diagnosis: Infection, dehydration, metabolic abnormality, hypo/hyperglycemia, electrolyte disturbance, anemia, hypoxia, cardiac sources, intracerebral event, toxicologic, neurologic, as well as other pathologies. Diagnostics interpreted by me: ECG: Twelve-lead ECG reveals sinus rhythm with sinus arrhythmia at [address] Poor baseline data. No ST elevation. No PVCs. Cardiac Monitoring: Cardiac monitoring ordered by me: The patient was placed on continuous cardiac monitoring and observed. It revealed a normal sinus rhythm at 93 beats per minute without ectopy or evidence of dysrhythmia. Imaging studies: Chest x-ray. Findings: A chest x-ray was performed and revealed no pneumothorax, effusion, infiltrate, pulmonary edema, free air under the diaphragm, or wide mediastinum. Impression: No acute disease. Head CT: A noncontrast CT scan of the head was performed and was negative for tumor, fracture, intracranial hemorrhage, or other acute pathology. HPI: The patient is a 80 year old female who presents to the Emergency Room with complaints of weakness. This started 4 days ago and is persisting. The patient is aphasic. She does nod her head yes or no to questions. EMS noted that the symptoms have been persistent. The patient was seen in the ER yesterday. She had a supratherapeutic INR. Her white count was 12,000. She has had a cough, headache, and poor p.o. intake. She feels very weak overall. She notes some epigastric abdominal discomfort. The patient has been treated with vitamin K yesterday for relieving factors. History is limited secondary to patient's expressive aphasia. ROS: See above HPI for pertinent positives & negatives. Limited secondary to expressive aphasia. PAST MEDICAL HISTORY:See Below , A. fib, stroke, anticoagulated PAST SURGICAL HISTORY:See Below, FAMILY HISTORY:See Below SOCIAL HISTORY:See Below, lives with family HOME MEDICATIONS:See Below ALLERGIES:See Below VITALS:See Below PHYSICAL EXAMINATION: GENERAL: Awake, alert, age-appropriate appearing, in no distress HENT: Normocephalic, atraumatic. Oropharynx unremarkable. EYES: Normal conjunctiva. Sclera non-icteric. NECK: Inspection normal. Non-tender. Supple. No nuchal rigidity. FROM. No masses. RESPIRATORY: Clear to auscultation. No wheezes. No rales. Normal respiratory effort. CARDIAC: Normal rate. Normal rhythm. No murmurs. No rubs. Extremities warm and well perfused. Pulses equal. No JVD. GI: Soft, non-distended. Mild epigastric tenderness to palpation. No rebound or guarding. No masses. RECTAL: Deferred. MUSCULOSKELETAL: Atraumatic. Chest examination reveals no tenderness. The back is symmetrical on inspection without obvious abnormality. There is no CVA tenderness to palpation. No joint edema. LOWER EXTREMITIES: Calves are equal size bilaterally and non-tender. No edema. No discoloration. NEURO: Expressive aphasia present. Otherwise normal sensorium. No focal sensory or motor deficits noted. SKIN: No rash or jaundice noted. 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 Beliefs That Will Affect Care: None Current Living Situation: Alone Feels Safe at Home: Yes Assistive Devices: Walker Allergies Allergies Allergy/AdvReac Type Severity Reaction Status Date / Time No Known Allergies Allergy Verified 01/22/21 13:12 Home Meds Home Medications Medication Instructions Recorded Confirmed amlodipine 10 mg tablet 10 mg PO QAM 11/22/20 01/23/21 atorvastatin 10 mg tablet 10 mg PO QAM 11/22/20 01/23/21 ergocalciferol (vitamin D2) 1,250 50,000 unit PO WK 11/22/20 01/23/21 mcg (50,000 unit) capsule potassium chloride 20 mEq 20 meq PO QAM 11/22/20 01/23/21 tablet,extended release(part/cryst) escitalopram oxalate 10 mg PO DAILY 01/23/21 01/23/21 omeprazole 20 mg PO QAM 01/23/21 01/23/21 Results & Data (ED) Vital Signs Vital Signs - 24 hr 01/23/21 14:09 01/23/21 14:13 01/23/21 14:24 Temperature 36.9 C Temperature Source Oral Pulse Rate 92 H 90 81 Pulse Rate from SpO2 Sensor 94 H 75 Pulse Rhythm Regular Pulse Strength Normal Respiratory Rate 20 18 23 Respiratory Effort / Characteristics Non-Labored Spontaneous Respiratory Depth Normal Respiratory Pattern Regular Blood Pressure 157/70 H 157/70 H Blood Pressure Mean 99 99 Blood Pressure Position Sitting Pulse Oximetry 93 93 92 Oxygen Delivery Method Room Air Sepsis Recent Fever Within 48 Hours No Sepsis New/Unexplained Change in Mental Status N/A Sepsis Action Taken by Nursing No Action Required 01/23/21 14:30 01/23/21 14:40 01/23/21 14:43 Temperature Temperature Source Pulse Rate 92 H 95 H Pulse Rate from SpO2 Sensor Pulse Rhythm Pulse Strength Respiratory Rate 24 19 Respiratory Effort / Characteristics Respiratory Depth Respiratory Pattern Blood Pressure Blood Pressure Mean Blood Pressure Position Pulse Oximetry 91 95 Oxygen Delivery Method Room Air Sepsis Recent Fever Within 48 Hours Sepsis New/Unexplained Change in Mental Status Sepsis Action Taken by Nursing 01/23/21 14:50 01/23/21 15:00 01/23/21 15:10 Temperature Temperature Source Pulse Rate 91 H 106 H 92 H Pulse Rate from SpO2 Sensor 93 H Pulse Rhythm Pulse Strength Respiratory Rate 20 21 23 Respiratory Effort / Characteristics Respiratory Depth Respiratory Pattern Blood Pressure 135/69 Blood Pressure Mean 91 Blood Pressure Position Pulse Oximetry 94 Oxygen Delivery Method Sepsis Recent Fever Within 48 Hours Sepsis New/Unexplained Change in Mental Status Sepsis Action Taken by Nursing 01/23/21 15:20 01/23/21 15:30 01/23/21 15:31 Temperature Temperature Source Pulse Rate 104 H 102 H 106 H Pulse Rate from SpO2 Sensor 89 Pulse Rhythm Pulse Strength Respiratory Rate 21 18 16 Respiratory Effort / Characteristics Respiratory Depth Respiratory Pattern Blood Pressure 119/85 Blood Pressure Mean 96 Blood Pressure Position Pulse Oximetry 95 Oxygen Delivery Method Sepsis Recent Fever Within 48 Hours Sepsis New/Unexplained Change in Mental Status Sepsis Action Taken by Nursing 01/23/21 15:34 01/23/21 15:46 01/23/21 15:50 Temperature Temperature Source Pulse Rate 96 H 102 H Pulse Rate from SpO2 Sensor 97 H 95 H Pulse Rhythm Pulse Strength Respiratory Rate 27 H 21 Respiratory Effort / Characteristics Respiratory Depth Respiratory Pattern Blood Pressure Blood Pressure Mean Blood Pressure Position Pulse Oximetry 95 94 95 Oxygen Delivery Method Room Air Sepsis Recent Fever Within 48 Hours Sepsis New/Unexplained Change in Mental Status Sepsis Action Taken by Nursing 01/23/21 16:00 01/23/21 16:01 01/23/21 16:10 Temperature Temperature Source Pulse Rate 92 H 105 H 92 H Pulse Rate from SpO2 Sensor 95 H 101 H 85 Pulse Rhythm Pulse Strength Respiratory Rate 23 19 24 Respiratory Effort / Characteristics Respiratory Depth Respiratory Pattern Blood Pressure 129/62 Blood Pressure Mean 84 Blood Pressure Position Pulse Oximetry 94 95 94 Oxygen Delivery Method Sepsis Recent Fever Within 48 Hours Sepsis New/Unexplained Change in Mental Status Sepsis Action Taken by Nursing 01/23/21 16:20 01/23/21 16:30 01/23/21 16:31 Temperature Temperature Source Pulse Rate 94 H 109 H 94 H Pulse Rate from SpO2 Sensor 93 H 98 H 91 H Pulse Rhythm Pulse Strength Respiratory Rate 17 23 24 Respiratory Effort / Characteristics Respiratory Depth Respiratory Pattern Blood Pressure 131/71 Blood Pressure Mean 91 Blood Pressure Position Pulse Oximetry 95 93 94 Oxygen Delivery Method Sepsis Recent Fever Within 48 Hours Sepsis New/Unexplained Change in Mental Status Sepsis Action Taken by Nursing 01/23/21 16:40 01/23/21 16:50 01/23/21 17:00 Temperature Temperature Source Pulse Rate 79 99 H 94 H Pulse Rate from SpO2 Sensor 76 98 H 93 H Pulse Rhythm Pulse Strength Respiratory Rate 23 20 21 Respiratory Effort / Characteristics Respiratory Depth Respiratory Pattern Blood Pressure 136/64 Blood Pressure Mean 88 Blood Pressure Position Pulse Oximetry 94 94 95 Oxygen Delivery Method Sepsis Recent Fever Within 48 Hours Sepsis New/Unexplained Change in Mental Status Sepsis Action Taken by Nursing 01/23/21 17:01 Temperature Temperature Source Pulse Rate 93 H Pulse Rate from SpO2 Sensor 92 H Pulse Rhythm Pulse Strength Respiratory Rate 21 Respiratory Effort / Characteristics Respiratory Depth Respiratory Pattern Blood Pressure Blood Pressure Mean Blood Pressure Position Pulse Oximetry 95 Oxygen Delivery Method Room Air Sepsis Recent Fever Within 48 Hours Sepsis New/Unexplained Change in Mental Status Sepsis Action Taken by Nursing Laboratory Data Result diagrams: 01/23/21 15:15 01/23/21 15:15 Lab Results 01/23/21 01/23/21 01/23/21 Range/Units 15:15 15:15 15:15 WBC 10.77 (4.8-10.8) K/uL RBC 5.60 H (4.2-5.4) M/uL Hgb 16.0 (12.0-16.0) g/dL Hct 45.9 (37-47) % MCV 82.0 (80-100) fL MCH 28.6 (25-34) pg MCHC 34.9 (32-36) g/dL RDW Std Deviation 41.6 (36.4-46.3) fL RDW Coeff of Dayron 13.9 (11.5-14.5) % Plt Count 341 (130-400) K/uL MPV 10.4 (7.4-10.4) fL Immature Gran % (Auto) 0.4 % Neut % (Auto) 79.6 % Lymph % (Auto) 13.6 % Cook % (Auto) 6.3 % Eos % (Auto) 0.0 % Baso % (Auto) 0.1 % Neut # (Auto) 8.57 H (1.4-6.5) K/uL Lymph # (Auto) 1.47 (1.2-3.4) K/uL Cook # (Auto) 0.68 H (0.11-0.59) K/uL Eos # (Auto) 0.00 (0-0.5) K/uL Baso # (Auto) 0.01 (0-0.2) K/uL Immature Gran # (Auto) 0.04 H (0.00-0.02) K/uL PT 13.5 H (9.0-12.0) Seconds INR 1.4 H (0.9-1.1) Sodium 136 (136-145) mmol/L Potassium 3.2 L (3.5-5.1) mmol/L Chloride 100 (98-107) mmol/L Carbon Dioxide 27 (21-32) mmol/L Anion Gap 9.0 (3-11) BUN 15 (7-18) mg/dl Creatinine 0.46 L (0.6-1.2) mg/dl Est Cr Clr Drug Dosing Not Reportable Est GFR ( Amer) 109.7 ml/min Est GFR (Non-Af Amer) 94.6 ml/min BUN/Creatinine Ratio 32.0 H (10-20) Glucose 83 (70-99) mg/dl Calcium 8.6 (8.5-10.1) mg/dl Magnesium 1.7 L (1.8-2.4) mg/dl Total Bilirubin 1.7 H D (0.2-1) mg/dl AST 17 (15-37) U/L ALT 14 (12-78) U/L Alkaline Phosphatase 74 (45-117) U/L Troponin I < 0.015 (0-0.045) ng/ml Total Protein 7.0 (6.4-8.2) gm/dl Albumin 3.6 (3.4-5.0) gm/dl Globulin 3.4 (2.5-4.0) gm/dl Albumin/Globulin Ratio 1.1 (0.9-2) TSH 0.250 L (0.300-4.500) uIu/ml Free T4 1.69 H (0.8-1.6) ng/dl COVID-19 Eval Order SARS-CoV-2 (PCR) (Negative) 01/23/21 01/23/21 Range/Units 17:20 17:20 WBC (4.8-10.8) K/uL RBC (4.2-5.4) M/uL Hgb (12.0-16.0) g/dL Hct (37-47) % MCV (80-100) fL MCH (25-34) pg MCHC (32-36) g/dL RDW Std Deviation (36.4-46.3) fL RDW Coeff of Dayron (11.5-14.5) % Plt Count (130-400) K/uL MPV (7.4-10.4) fL Immature Gran % (Auto) % Neut % (Auto) % Lymph % (Auto) % Cook % (Auto) % Eos % (Auto) % Baso % (Auto) % Neut # (Auto) (1.4-6.5) K/uL Lymph # (Auto) (1.2-3.4) K/uL Cook # (Auto) (0.11-0.59) K/uL Eos # (Auto) (0-0.5) K/uL Baso # (Auto) (0-0.2) K/uL Immature Gran # (Auto) (0.00-0.02) K/uL PT (9.0-12.0) Seconds INR (0.9-1.1) Sodium (136-145) mmol/L Potassium (3.5-5.1) mmol/L Chloride (98-107) mmol/L Carbon Dioxide (21-32) mmol/L Anion Gap (3-11) BUN (7-18) mg/dl Creatinine (0.6-1.2) mg/dl Est Cr Clr Drug Dosing Est GFR ( Amer) ml/min Est GFR (Non-Af Amer) ml/min BUN/Creatinine Ratio (10-20) Glucose (70-99) mg/dl Calcium (8.5-10.1) mg/dl Magnesium (1.8-2.4) mg/dl Total Bilirubin (0.2-1) mg/dl AST (15-37) U/L ALT (12-78) U/L Alkaline Phosphatase (45-117) U/L Troponin I (0-0.045) ng/ml Total Protein (6.4-8.2) gm/dl Albumin (3.4-5.0) gm/dl Globulin (2.5-4.0) gm/dl Albumin/Globulin Ratio (0.9-2) TSH (0.300-4.500) uIu/ml Free T4 (0.8-1.6) ng/dl COVID-19 Eval Order Covid19 at [facility] SARS-CoV-2 (PCR) NEGATIVE (Negative) Administered Medications Sodium Chloride (Nss 1000ml) 1,000 mls @ 125 mls/hr IV .Q8H STA Stop: 01/23/21 22:49 Last Admin: 01/23/21 15:33 Dose: 125 mls/hr Documented by: [id number] Discontinued Medications Potassium Chloride (K Rene / Wtr) 10 meq in 100 mls @ 100 mls/hr IV ONE ONE Stop: 01/23/21 17:45 Last Admin: 01/23/21 17:04 Dose: 100 mls/hr Documented by: [id number] Ioversol (Optiray 320 100ml) 89 ml IV ONCE ONE Stop: 01/23/21 18:15 Last Admin: 01/23/21 18:14 Dose: 89 ml Documented by: [id number] Imaging Data Radiologist's Impression: Chest X-Ray 01/23/21 14:50 SINGLE VIEW CHEST CLINICAL HISTORY: Cough. FINDINGS: An AP, portable, upright chest radiograph is compared to study dated and correlated with chest CT dated 12/24/2020. The cardiomediastinal silhouette is unremarkable noting atherosclerotic calcification of the thoracic aorta. Emphysematous change is similar to previous. An approximately 4.5 cm mass lesion is again seen in the left upper lobe. The right upper lobe groundglass lesion seen by CT is not visualized by x-ray. There is no evidence of superimposed airspace consolidation or large pleural effusion. No pneumothorax is seen. The skeletal structures are osteopenic. The bony thorax is grossly intact. IMPRESSION: 1. Emphysematous change with no acute cardiopulmonary abnormality. 2. A left upper lobe lung mass is unchanged from previous. ACT 112: Negative or not required by law. Electronically signed by: Robin Jordan M.D. 01/23/2021 3:[address] 01/23/21 14:50 CT SCAN OF THE BRAIN WITHOUT IV CONTRAST CLINICAL HISTORY: Headache. COMPARISON STUDY: No priors. TECHNIQUE: Unenhanced axial CT scan of the brain is performed from the vertex to the skull base. A dose lowering technique was utilized adhering to the prin ciples of [place]. CT DOSE: 537.48 mGy.cm FINDINGS: Brain parenchyma: There are age-related involutional changes noting moderate patchy subcortical and periventricular microangiopathic change. Left MCA territory encephalomalacia is consistent with a remote infarct. There is Wallerian degeneration of the left car and the ex vacuo dilatation of the frontal horn of the left lateral ventricle. There is no hemorrhage, mass effect, or evidence of acute territorial ischemia by CT criteria. Morin-white matter differentiation is preserved. No extra-axial fluid collection is seen. Ventricles, sulci, cisterns: Prominent secondary to involutional change. Intracranial vasculature: There is atherosclerotic calcification of the cavernous carotid and vertebral arteries. Calvarium: Unremarkable. Sinuses and mastoids: The visualized paranasal sinuses are clear. The mastoid air cells are well pneumatized. Orbits: The bony orbits are grossly intact. IMPRESSION: 1. There is no hemorrhage, mass effect, or evidence of acute territorial ischemia by CT criteria. 2. Remote left MCA territory infarct as above. ACT 112: Negative or not required by law. Electronically signed by: Robin Jordan M.D. 01/23/2021 3:51 PM Discharge Plan Visit Data Chief Complaint: Weakness Stated Complaint: WEAKNESS, AB PAIN ED Provider: Jonathon Olivo Discharge Problem: Weakness, Cough Forms Stand Alone Forms: My [facility] Prescriptions Prescriptions: No Action ergocalciferol (vitamin D2) 1,250 mcg (50,000 unit) capsule 50,000 unit PO WK RF: 0 atorvastatin 10 mg tablet 10 mg PO QAM RF: 0 amlodipine 10 mg tablet 10 mg PO QAM RF: 0 potassium chloride [Klor-Con M20] 20 mEq tablet,ER particles/crystals 20 meq PO QAM RF: 0 escitalopram oxalate 10 mg tablet 10 mg PO DAILY RF: 0 omeprazole 20 mg capsule,delayed release(DR/EC) 20 mg PO QAM RF: 0
--- NOTE | 2021-01-23 15:30 | XRay Report ---
SINGLE VIEW CHEST CLINICAL HISTORY: Cough. FINDINGS: An AP, portable, upright chest radiograph is compared to study dated 01/22/2021 and correlat ed with chest CT dated 12/24/2020. The cardiomediastinal silhouette is unremarkable noting atheroscler otic calcification of the thoracic aorta. Emphysematous change is similar to previous. An approximate ly 4.5 cm mass lesion is again seen in the left upper lobe. The right upper lobe groundglass lesion s een by CT is not visualized by x-ray. There is no evidence of superimposed airspace consolidation or large pleural effusion. No pneumothorax is seen. The skeletal structures are osteopenic. The bony tho rax is grossly intact. IMPRESSION: 1. Emphysematous change with no acute cardiopulmonary abnormality. 2. A left upper lobe lung mass is unchanged from previous. ACT 112: Negative or not required by law. Electronically signed by: Robin Jordan M.D. 01/23/2021 3:28 PM
[2021-01-23 15:33] LABS: Hematocrit (blood only) 45.9 % (37-47); White Blood Count 10.77 K/uL (4.8-10.8)
[2021-01-23 15:34] LABS: Basophils # (auto) 0.01 K/uL (0-0.2); Basophils % (auto) 0.1 %; Immature Granulocytes # (auto) 0.04 K/uL (0.00-0.02); Immature Granulocytes % (auto) 0.4 %; Lymphocytes # (auto) 1.47 K/uL (1.2-3.4); Lymphocytes % (auto) 13.6 %; Mean Corpuscular Hemoglobin 28.6 pg (25-34); Mean Corpuscular Hgb Conc 34.9 g/dL (32-36); Mean Platelet Volume 10.4 fL (7.4-10.4); Monocytes # (auto) 0.68 K/uL (0.11-0.59); Monocytes % (auto) 6.3 %; Neutrophils # (auto) 8.57 K/uL (1.4-6.5); Neutrophils % (auto) 79.6 %; Platelet Count 341 K/uL (130-400); RDW Coefficient of Variation 13.9 % (11.5-14.5); RDW Standard Deviation 41.6 fL (36.4-46.3)
[2021-01-23 15:52] LABS: Alanine Aminotransferase 14 U/L (12-78); Albumin Level 3.6 gm/dl (3.4-5.0); Aspartate Aminotransferase 17 U/L (15-37); Blood Urea Nitrogen 15 mg/dl (7-18); Calcium 8.6 mg/dl (8.5-10.1); Carbon Dioxide 27 mmol/L (21-32); Chloride 100 mmol/L (98-107); Est GFR (African American) 109.7 ml/min; Est GFR (Non-African American) 94.6 ml/min; Glucose 83 mg/dl (70-99); Magnesium 1.7 mg/dl (1.8-2.4); Potassium 3.2 mmol/L (3.5-5.1); Sodium 136 mmol/L (136-145)
--- NOTE | 2021-01-23 15:52 | CT Scan Report ---
CT SCAN OF THE BRAIN WITHOUT IV CONTRAST CLINICAL HISTORY: Headache. COMPARISON STUDY: No priors. TECHNIQUE: Unenhanced axial CT scan of the brain is performed from the vertex to the skull base. A do se lowering technique was utilized adhering to the principles of ALARA. CT DOSE: 537.48 mGy.cm FINDINGS: Brain parenchyma: There are age-related involutional changes noting moderate patchy subcortical and periventricular microangiopathic change. Left MCA territory encephalomalacia is consistent with a rem ote infarct. There is Wallerian degeneration of the left car and the ex vacuo dilatation of the fron juan carlos horn of the left lateral ventricle. There is no hemorrhage, mass effect, or evidence of acute ter ritorial ischemia by CT criteria. Morin-white matter differentiation is preserved. No extra-axial flui d collection is seen. Ventricles, sulci, cisterns: Prominent secondary to involutional change. Intracranial vasculature: There is atherosclerotic calcification of the cavernous carotid and vertebr al arteries. Calvarium: Unremarkable. Sinuses and mastoids: The visualized paranasal sinuses are clear. The mastoid air cells are well pneu matized. Orbits: The bony orbits are grossly intact. IMPRESSION: 1. There is no hemorrhage, mass effect, or evidence of acute territorial ischemia by CT criteria. 2. Remote left MCA territory infarct as above. ACT 112: Negative or not required by law. Electronically signed by: Robin Jordan M.D. 01/23/2021 3:51 PM
[2021-01-23 15:55] LABS: INR 1.4 (0.9-1.1); Prothrombin Time 13.5 Seconds (9.0-12.0)
[2021-01-23 16:06] LABS: Albumin Globulin Ratio 1.1 (0.9-2); Alkaline Phosphatase 74 U/L (45-117); Bilirubin,Total 1.7 mg/dl (0.2-1); Globulin 3.4 gm/dl (2.5-4.0); Troponin I < 0.015 ng/ml (0-0.045)
[2021-01-23 16:21] LABS: T4 Free Thyroxine 1.69 ng/dl (0.8-1.6)
[2021-01-23] MEDS ORDERED: MAGNESIUM SULFATE / D5W 1 GM/100 ML BAG IV STA (16:46)
[2021-01-23] MEDS ORDERED: POTASSIUM CHLORIDE / WTR 10 MEQ/100 ML PLCT IV ONE (16:46)
--- NOTE | 2021-01-23 17:41 | History & Physical Report ---
Date of Service January 23, 2021 Assessment & Plan (1) Esophageal dysphagia: CT chest with IV and oral contrast to assess for obstructive cause SLT Consult GI for consideration of EGD (2) Pulmonary nodules/lesions, multiple: Suspected metastatic primary lung vs. breast Consult palliative care for goals of care (3) GERD (gastroesophageal reflux disease): Switch omeprazole for pantoprazole per hospital formulary (4) Thoracic compression fracture: MRI not pursued on last hospitalization. Consider MRI to assess for bone mets depending on palliative care discussion. (5) Atrial fibrillation: Currently in NSR Switch to Eliquis after decision regarding EGD and hemoglobin stability (recent GI bleed suspected) (6) Weakness: PT/OT (7) Severe protein-calorie malnutrition: dietary consult following SLT and GI consults as above (8) History of cerebrovascular accident: Continue atorvastatin 10mg PO daily Consider Eliquis restarting as above (9) Hypertension: Hold amlodipine pending BP stability Admission and Anticipated Discharge Date Admission Date: January 23, 2021 History of Present Illness Chief Complaint: Dysphagia Primary Care Provider: Paras Mccall Sharron Morales is a 80-year-old female who presents to the ER with fatigue, odynophagia, decreased appetite. She has been significantly generalized decline since her discharge on December 14, 2020 mainly with lethargy and decreased appetite. On that hospitalization she had a CT which was concerning for metastatic lung/breast cancer which she opted for no further workup. Her appetite has significantly become worse since but never had so much of a problem swallowing. Difficulty swallowing is new of today. She is aphasic from a prior stroke however she is able to answer yes and no questions appropriately and reports food getting stuck in her esophagus. New coarse cough today in addition. No odynophagia. No nausea, vomiting, diarrhea or constipation. She does note generalized abdominal pain. Lethar She was seen in the ER yesterday with a supratherapeutic INR and was discharged back home after CT A/P showed no acute process. She was given vitamin K 10mg PO yesterday in the ER. On her last hospitalization she was notably switched to Eliquis but given increasing lethargy concern for this new medication causing this so she was switched back to warfarin by her outpatient providers. Allergies Allergy/AdvReac Type Severity Reaction Status Date / Time No Known Allergies Allergy Verified 01/22/21 13:12 Home Medications Medication Instructions Recorded Confirmed Type amlodipine 10 mg tablet 10 mg PO QAM 11/22/20 01/23/21 History atorvastatin 10 mg tablet 10 mg PO QAM 11/22/20 01/23/21 History ergocalciferol (vitamin D2) 1,250 50,000 unit PO WK 11/22/20 01/23/21 History mcg (50,000 unit) capsule potassium chloride 20 mEq 20 meq PO QAM 11/22/20 01/23/21 History tablet,extended release(part/cryst) escitalopram oxalate 10 mg PO DAILY 01/23/21 01/23/21 History omeprazole 20 mg PO QAM 01/23/21 01/23/21 History Past Med/Surg History Medical History Atrial fibrillation Cerebral atherosclerosis GERD (gastroesophageal reflux disease) Heart disease Hyperlipemia Hypertension Hypokalemia Stroke Social History Smoking Status: Never smoker Hx Alcohol Use: No Hx Substance Use: No Preferred Language: Mauritanian Communication Ability: Impaired Communication Ability Comment: since stroke 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 Review of Systems Review of Systems: All systems reviewed & are unremarkable except as noted in HPI & below Physical Exam Constitutional: + ill appearing and + cachectic; no acute distress Eyes: PERRL, conjunctivae normal, anicteric sclerae Respiratory: normal respiratory effort, lungs clear to auscultation Cardiovascular: RRR, no murmur, no edema Gastrointestinal (Abdomen): Inspection/Auscultation: abdomen normal to inspection and normal bowel sounds; abdomen not distended Percussion/Palpat ion: + abdomen tender (Generalized) and abdomen soft; no guarding and abdomen not rigid Musculoskeletal: no cyanosis or clubbing, extremities motor strength 5/5 Skin: no rashes, warm and dry Neurologic: moves all extremities and awake Speech / Cognition: + expressive aphasia (chronic) Psychiatric: Orientation: alert Genitourinary: no CVA tenderness Results & Data Results & Data ([facility]) Vital Signs (Past 12 Hours) Vital Signs Temp Pulse Resp BP Pulse Ox 01/23/21 17:01 93 H 21 95 01/23/21 17:00 94 H 21 136/64 95 01/23/21 16:50 99 H 20 94 01/23/21 16:40 79 23 94 01/23/21 16:31 94 H 24 94 01/23/21 16:30 109 H 23 131/71 93 01/23/21 16:20 94 H 17 95 01/23/21 16:10 92 H 24 94 01/23/21 16:01 105 H 19 95 01/23/21 16:00 92 H 23 129/62 94 01/23/21 15:50 102 H 21 95 01/23/21 15:46 96 H 27 H 94 01/23/21 15:34 95 01/23/21 15:31 106 H 16 01/23/21 15:30 102 H 18 119/85 01/23/21 15:20 104 H 21 95 01/23/21 15:10 92 H 23 01/23/21 15:00 106 H 21 135/69 01/23/21 14:50 91 H 20 94 01/23/21 14:43 95 01/23/21 14:40 95 H 19 01/23/21 14:30 92 H 24 91 01/23/21 14:24 81 23 92 01/23/21 14:13 36.9 C 90 18 157/70 H 93 01/23/21 14:09 92 H 20 157/[address] SCAN OF THE BRAIN WITHOUT IV CONTRAST IMPRESSION: 1. There is no hemorrhage, mass effect, or evidence of acute territorial ischemia by CT criteria. 2. Remote left MCA territory infarct as above. SINGLE VIEW CHEST IMPRESSION: 1. Emphysematous change with no acute cardiopulmonary abnormality. 2. A left upper lobe lung mass is unchanged from previous. Medications Administered ER Medications Given: NSS 125ml/hr Magnesium sulphate 1 gIV KCl 10 meq IV ECG Rate (beats per minute): 95 Rhythm: sinus with SA Findings: + other (TW flattening in lateral leads) and + T-wave inversion (Inferior) Comparison ECG Date: from (January 22, 2021) Change: the following changes noted (TWI worse in inferior leads) Code Status & VTE Plan Code Status DNR/DNI VTE Prophylaxis Plan VTE Prophylaxis will be ordered: Yes PG Care Time/CCT Total # of Minutes Spent Total Time Spent with Patient: Total time spent is greater than 50% in coordination of care (as documented) at patient's floor/unit and/or counseling patient: Coding Level of Care Code 18023 Initial Inpt Care Lvl 3 Diagnoses Esophageal dysphagia R13.10 Pulmonary nodules/lesions, multiple R91.8 GERD (gastroesophageal reflux disease) K21.9 Thoracic compression fracture S22.000A Atrial fibrillation I48.91 Weakness R53.1 Severe protein-calorie malnutrition E43 History of cerebrovascular accident Z86.73 Hypertension I10
[2021-01-23] MEDS ORDERED: OPTIRAY 320 100ml IV ONE (18:14)
--- NOTE | 2021-01-23 18:27 | CT Scan Report ---
CT SCAN OF THE CHEST WITH IV CONTRAST CLINICAL HISTORY: Follow-up lung mass. Dysphagia. COMPARISON STUDY: Chest CT dated 12/24/2020. Chest x-ray dated 01/23/2021. TECHNIQUE: Following the IV administration of 89 cc of Optiray 320, CT scan of the thorax was perform ed from the thoracic inlet to the upper abdomen. Images are reviewed in the axial, sagittal, and jayashree nal planes. IV contrast was administered without complication. Oral contrast was used to opacify the esophagus. A dose lowering technique was utilized adhering to the principles of ALARA. The examinatio n is degraded by motion artifact. CT DOSE: 191.17 mGy.cm FINDINGS: Thyroid: Imaged portions of the thyroid gland are normal in size and attenuation. Esophagus: Esophagus is normal in appearance, and well opacified with enteric contrast. Thoracic aorta: There is atherosclerotic calcification of the thoracic aorta, which is normal in victoriano iris and demonstrates standard 3-vessel arch anatomy. No dissection is seen. Pulmonary vasculature: The pulmonary trunk is normal in caliber. There are no filling defects identif ied in the central pulmonary vessels to indicate pulmonary embolus. Note that this examination was no t protocoled for evaluation of the pulmonary arteries. Heart: The heart is normal in size and without pericardial effusion. The coronary arteries are densel y calcified. Lungs and pleural spaces: Evaluation of the lung parenchyma is degraded by motion artifact. Emphysema tous change is noted. Apical scarring is observed. There is no airspace consolidation typical for pne umonia or pleural effusion. Secretions are seen in the trachea. A heterogeneous multinodular left upp er lobe mass is unchanged from previous. This measures 3.2 x 2.7 x 1.6 cm as seen on image #110. Dangelo tional satellite nodules are seen in the left upper lobe on images #81 and #87 and measure up to 7 mm . An additional 2.5 cm groundglass lesion is seen in the right upper lobe on image #133. A 0.8 cm kati undglass nodule in the left upper lobe in image #109 and a 1.0 cm groundglass nodule at the left apex on image #44 are also unchanged. Mediastinum: No pathologically enlarged mediastinal lymph nodes are identified. Lizzie: Clear. Axillae: There is no axillary lymphadenopathy. Upper abdomen: There is a small to moderate hiatal hernia. Partially visualized upper abdominal visce ra is otherwise grossly unremarkable. Skeletal structures: The skeletal structures are osteopenic. There are compression deformities of T6, , T10, and T11. These were also present on 12/24/2020. The T10 compression appears subacute. Degenerat nghia change and hyperkyphosis are noted in the thoracic spine. No lytic or blastic bony lesions are se en. Soft tissues: Indeterminant subcentimeter breast nodules and a 1.2 cm sebaceous cyst in the right f[address] st wall seen on image #160 are unchanged. IMPRESSION: 1. Motion compromise examination. 2. Emphysema. 3. Bilateral upper lobe pulmonary lesions have not significantly changed as compared to 12/24/2020. Th ashok remain typical for multifocal pulmonary neoplasms. 4. There is no evidence of superimposed airspace consolidation or pleural effusion. 5. Secretions/debris are noted within the trachea. 6. Hiatal hernia. 7. A compression deformity of T10 is unchanged and appears subacute. Correlate for point tenderness. 8. Additional findings as above. ACT 112: Negative or not required by law. Electronically signed by: Robin Jordan M.D. 01/23/2021 6:25 PM
[2021-01-23] MEDS ORDERED: ERGOCALCIFEROL 50,000 UNITS 1250 MCG CAP PO SCH (20:18)
[2021-01-23] MEDS: SODIUM CHLOR 0.45% + 20MEQ KCL 20 MEQ/1,000 ML BAG IV SCH (22:12)
[2021-01-23] MEDS: MAGNESIUM SULFATE / D5W 1 GM/100 ML BAG IV SCH (22:15)
[2021-01-24] MEDS: MAGNESIUM SULFATE / D5W 1 GM/100 ML BAG IV SCH ×2 (00:27→02:15)
[2021-01-24 06:28] LABS: Basophils # (auto) 0.02 K/uL (0-0.2); Basophils % (auto) 0.2 %; Eosinophils # (auto) 0.09 K/uL (0-0.5); Eosinophils % (auto) 0.9 %; Hematocrit (blood only) 40.4 % (37-47); Immature Granulocytes # (auto) 0.06 K/uL (0.00-0.02); Immature Granulocytes % (auto) 0.6 %; Lymphocytes # (auto) 2.22 K/uL (1.2-3.4); Lymphocytes % (auto) 21.1 %; Mean Corpuscular Hemoglobin 28.5 pg (25-34); Mean Corpuscular Hgb Conc 34.7 g/dL (32-36); Mean Corpuscular Volume 82.3 fL (80-100); Mean Platelet Volume 10.2 fL (7.4-10.4); Monocytes # (auto) 1.06 K/uL (0.11-0.59); Monocytes % (auto) 10.1 %; Neutrophils # (auto) 7.06 K/uL (1.4-6.5); Neutrophils % (auto) 67.1 %; Platelet Count 326 K/uL (130-400); RDW Coefficient of Variation 13.6 % (11.5-14.5); RDW Standard Deviation 41.3 fL (36.4-46.3); Red Blood Count 4.91 M/uL (4.2-5.4); White Blood Count 10.51 K/uL (4.8-10.8)
[2021-01-24 07:04] LABS: BUN Creatinine Ratio 22.8 (10-20); Blood Urea Nitrogen 7 mg/dl (7-18); Calcium 7.1 mg/dl (8.5-10.1); Carbon Dioxide 27 mmol/L (21-32); Chloride 97 mmol/L (98-107); Est GFR (African American) 124.9 ml/min; Est GFR (Non-African American) 107.7 ml/min; Glucose 86 mg/dl (70-99); Magnesium 2.7 mg/dl (1.8-2.4); Potassium 2.8 mmol/L (3.5-5.1); Sodium 134 mmol/L (136-145)
[2021-01-24] MEDS: ATORVASTATIN 10 MG TAB PO SCH (08:07)
[2021-01-24] MEDS: PANTOprazole 40 MG TAB PO SCH (08:07)
[2021-01-24] MEDS ORDERED: POTASSIUM CHLORIDE CRTAB 20 MEQ TABCR PO SCH ×2 (09:00→14:00)
--- NOTE | 2021-01-24 09:09 | Hospitalist Progress Note ---
Date of Service January 24, 2021 Assessment & Plan (1) Esophageal dysphagia: CT chest IMPRESSION: Emphysema. Bilateral upper lobe pulmonary lesions have not significantly changed as compared to 12/24/2020. These remain typical for multifocal pulmonary neoplasms. There is no evidence of superimposed airspace consolidation or pleural effusion. Secretions/debris are noted within the trachea. Hiatal hernia. A compression deformity of T10 is unchanged and appears subacute. Correlate for point tenderness. SLT Consult GI for consideration of EGD (2) Pulmonary nodules/lesions, multiple: Suspected metastatic primary lung vs. breast, send tumor markers. Consult palliative care for goals of care Met with son Rai after discussing with daughter on the phone. At the bedside the patient seen and convicted not want further work-up. The daughter and son are conflicted however because they feel that mom sometimes does not communicate in a straightforward way her wishes. After my interpretation of the bedside discussion I feel the patient does not want any further evaluation for this possibility of cancer. Additional time spent with this visit including discussion with the patient at the bedside calling the daughter at home and meeting the son once again at the bedside with the patient eventually took an additional 35 minutes (3) GERD (gastroesophageal reflux disease): Switch omeprazole for pantoprazole per hospital formulary (4) Thoracic compression fracture: MRI not pursued on last hospitalization. Consider MRI to assess for bone mets depending on palliative care discussion. (5) Atrial fibrillation: Currently in NSR Switch to Eliquis after decision regarding EGD and hemoglobin stability (recent GI bleed suspected) (6) Weakness: PT/OT (7) Severe protein-calorie malnutrition: dietary consult following SLT and GI consults as above (8) History of cerebrovascular accident: Continue atorvastatin 10mg PO daily Consider Eliquis restarting as above (9) Hypertension: Hold amlodipine pending BP stability Admission and Anticipated Discharge Date Admission Date: January 23, 2021 Subjective this pt is non verbal but she did smile at me and make eye contract and appropr iate gestures Review of Systems Review of Systems: unable to asses due to communication difficulty Physical Exam Physical Exam: The patient appeared petite and small statured but in no immediate distress Vital signs as documented. Head exam is normocephalic atraumatic Neck is without JVD, thyromegaly, or carotid bruits. Lungs are clear to auscultation, but diminished at the bases Cardiac exam, Rhythm is regular.. No murmurs, rubs or gallops. Abdominal exam reveals normal bowel sounds, soft non tender, no masses Extremities are nonedematous and both pedal pulses are present Neurologic exam is alert and follows commands, cannot speak except in occasional one word answers Skin is without bruises or rashes Results & Data Results & Data ([facility]) Vital Signs (Past 12 Hours) Vital Signs Temp Pulse Resp BP Pulse Ox 01/23/21 22:15 98.1 F 104 H 15 167/76 H 95 PG Care Time/CCT Total # of Minutes Spent Total Time Spent with Patient: Total time spent is greater than 50% in coordi nation of care (as documented) at patient's floor/unit and/or counseling patient: Coding Level of Care Code 57958 Subseq Hosp Care Lvl 3 (25 - SIGNIFICANT, SEPARATELY IDENTIFIABLE ) Diagnoses Esophageal dysphagia R13.10 Pulmonary nodules/lesions, multiple R91.8 GERD (gastroesophageal reflux disease) K21.9 Thoracic compression fracture S22.000A Atrial fibrillation I48.91 Weakness R53.1 Severe protein-calorie malnutrition E43 History of cerebrovascular accident Z86.73 Hypertension I10 Time Spent (min) 65
[2021-01-24] MEDS ORDERED: POTASSIUM CHLORIDE 10 MEQ / 100ML WTR IV STA (09:10)
[2021-01-24] MEDS: SODIUM CHLOR 0.45% + 20MEQ KCL 20 MEQ/1,000 ML BAG IV SCH ×2 (09:42→19:43)
[2021-01-24] MEDS: POTASSIUM CHLORIDE / WTR 10 MEQ/100 ML PLCT IV SCH ×6 (09:42→19:43)
--- NOTE | 2021-01-24 10:04 | Electrocardiogram Report ---
Test Reason : Blood Pressure : / mmHG Vent. Rate : 095 BPM Atrial Rate : 095 BPM P-R Int : 120 ms QRS Dur : 070 ms QT Int : 358 ms P-R-T Axes : 074 072 091 degrees QTc Int : 449 ms Poor data quality, interpretation may be adversely affected Sinus rhythm with marked sinus arrhythmia Nonspecific ST and T wave abnormality When compared with ECG of 22-JAN-2021 11:36, Nonspecific T wave abnormality, worse in Inferior leads and lateral leads Confirmed by Cecil Allen ([id number]) on 01/24/2021 10:03:26 AM Referred By: REFERRED SELF Confirmed By:Cecil Allen
--- NOTE | 2021-01-24 12:18 | Palliative Care Consultation ---
Date of Consultation January 24, 2021 Assessment & Plan (1) Palliative care encounter: Despite compression fractures, she denies pain. She is able to answer yes/no questions appropriately. I talked with her about the CT results and the likelihood that this is metastatic cancer. She indicates that she understands this. I asked her whether she would want us to do further testing and biopsy to establish a treatment plan and she consistently said no to this question asked several times. I asked her if she would want to focus on being comfortable for the time that she has and she indicated yes. I spoke with her daughter, Sherrie, on the phone. Sherrie lives right next door to Sharron and her siblings all live within a few miles. She has noticed decline in her function and appetite and confirms that when Sharron was told about CT results initially, she indicated that she would not want cancer treatment. She tells me that this is consistent with things that Sharron has said in the past as well. We discussed her difficulty swallowing and possible EGD. She would want to know if there were an easily reversible condition contributing to her dysphagia. Sherrie tells me that Sharron had a PEG tube after her CVA but never really needed to use it as her swallowing function improved. She does not think that her mother would want a PEG tube at this time and understands that her prognosis is different at this time. She did ask about prognosis. We discussed that if this is metastatic cancer and she opted for comfort directed care. Her prognosis would likely be six months or less. However, if her dysphagia were not reversible, this would significantly alter her prognosis. Sherrie has requested family meeting with her siblings to further discuss goals of care. Will wait for GI input and arrange family meeting. (2) Esophageal dysphagia: (3) Pulmonary nodules/lesions, multiple: (4) Thoracic compression fracture: (5) Atrial fibrillation: (6) History of cerebrovascular accident: History of Present Illness Reason for Consultation: goals of care Requesting Physician: Dr. Perez Attending Physician: Nico Shea MD History of Present Illness 80 yo lady with history of ischemic CVA eleven years ago with residual aphasia. Per her daughter she has had some right sided weakness but has been ambulating independently and only recently started using a cane or walker. She has had progressive fatigue and anorexia. On the day of admission her daughter noted that she had difficulty swallowing some water and she was brought to the emergency room. She had been hospitalized in November with GI bleed and supratherapeutic INR. She was discharged on eliquis. CT done on last admission showed left lung mass with satellite nodules. Multiple bilateral breast nodules were also noted. We have been consulted to assist with goals of care. Allergies Allergy/AdvReac Type Severity Reaction Status Date / Time No Known Allergies Allergy Verified 01/22/21 13:12 Home Medications Medication Instructions Recorded Confirmed Type amlodipine 10 mg tablet 10 mg PO QAM 11/22/20 01/23/21 History atorvastatin 10 mg tablet 10 mg PO QAM 11/22/20 01/23/21 History ergocalciferol (vitamin D2) 1,250 50,000 unit PO WK 11/22/20 01/23/21 History mcg (50,000 unit) capsule potassium chloride 20 mEq 20 meq PO QAM 11/22/20 01/23/21 History tablet,extended release(part/cryst) escitalopram oxalate 10 mg PO DAILY 01/23/21 01/23/21 History omeprazole 20 mg PO QAM 01/23/21 01/23/21 History Patient History Medical History Atrial fibrillation Cerebral atherosclerosis GERD (gastroesophageal reflux disease) Heart disease Hyperlipemia Hypertension Hypokalemia Stroke Social History Smoking Status: Never smoker Hx Alcohol Use: No Hx Substance Use: No Preferred Language: Libyan Communication Ability: Effective Communication Ability Comment: since stroke 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 Review of Systems Review of Systems: [place] Symptom Assessment Scale Pain 0/3 Dyspnea 0/3 Anxiety 1/3 Fatigue 2/3 Nausea 0/3 Drowsiness 0/3 Palliative Performance Score 50% Physical Exam Constitutional: + frail appearing ENMT: Mouth: + dry oral mucous membranes Respiratory: normal respiratory effort; no labored breathing Gastrointestinal (Abdomen): Percussion/Palpation: abdomen nontender Skin: warm and dry Neurologic: awake; not confused Speech / Cognition: + expressive aphasia Results & Data ([facility]) Vital Signs (Past 12 Hours) Vital Signs Temp Pulse Resp BP Pulse Ox 01/24/21 09:04 97.9 F 94 H 18 128/64 93 PG Care Time/CCT Total # of Minutes Spent Total Time Spent with Patient: Total time spent is greater than 50% in coordination of care (as documented) at patient's floor/unit and/or counseling patient: total time spent 75 minutes with more than 50% of time spent on goals of care, family update and education, prognosis. Coding Level of Care Code 79731 Inpt Consult Level 4 Diagnoses Palliative care encounter Z51.5 Esophageal dysphagia R13.10 Pulmonary nodules/lesions, multiple R91.8 Thoracic compression fracture S22.000A Atrial fibrillation I48.91 History of cerebrovascular accident Z86.73
[2021-01-25] MEDS: SODIUM CHLOR 0.45% + 20MEQ KCL 20 MEQ/1,000 ML BAG IV SCH (05:36)
[2021-01-25 07:16] LABS: BUN Creatinine Ratio 17.7 (10-20); Blood Urea Nitrogen 5 mg/dl (7-18); Calcium 7.2 mg/dl (8.5-10.1); Carbon Dioxide 19 mmol/L (21-32); Chloride 98 mmol/L (98-107); Est GFR (African American) 129.1 ml/min; Est GFR (Non-African American) 111.4 ml/min; Glucose 67 mg/dl (70-99); Magnesium 1.6 mg/dl (1.8-2.4); Potassium 3.7 mmol/L (3.5-5.1); Sodium 129 mmol/L (136-145)
--- NOTE | 2021-01-25 08:17 | Hospitalist Progress Note ---
Date of Service January 25, 2021 Assessment & Plan (1) Esophageal dysphagia: CT chest IMPRESSION: Emphysema. Bilateral upper lobe pulmonary lesions have not significantly changed as compared to 12/24/2020. These remain typical for multifocal pulmonary neoplasms. There is no evidence of superimposed airspace consolidation or pleural effusion. Secretions/debris are noted within the trachea. Hiatal hernia. A compression deformity of T10 is unchanged and appears subacute. Correlate for point tenderness. SLT feels patient will need esophagus cleared before any appropriate evaluation of speech could be undertaken however the patient is not permitting any further procedures invasive testing etc. therefore speech and language therapy feels the patient could pleasure eat if she wishes but does not feel restricting her diet at this point would be beneficial as the patient is leaning towards going on comfort measures and hospice with likely a short duration from now till her demise (2) Hyponatremia: concern if malignancy related, will check random urine sodium, did start some LR Patient is hypomagnesemic replete at this time (3) Pulmonary nodules/lesions, multiple: Suspected metastatic primary lung vs. breast, send tumor markers. CEA is elevated to 10 Consult palliative care for goals of care Met with son Rai 01/24 after discussing with daughter on the phone. At the bedside the patient seen and convicted not want further work-up. The daughter and son are conflicted however because they feel that mom sometimes does not communicate in a straightforward way her wishes. After my interpretation of the bedside discussion I feel the patient does not want any further evaluation for this possibility of cancer. 01/25 palliative care, Dr Munguia discussed with daughter on phone, she is not convinced that her mother wants to enter into comfort care. Will have family meeting to further discuss (4) GERD (gastroesophageal reflux disease): Switch omeprazole for pantoprazole per hospital formulary (5) Thoracic compression fracture: MRI not pursued on last hospitalization. Consider MRI to assess for bone mets depending on palliative care discussion. (6) Atrial fibrillation: Currently in NSR Switch to Eliquis after decision regarding EGD and hemoglobin stability (recent GI bleed suspected) (7) Weakness: PT/OT (8) Severe protein-calorie malnutrition: dietary consult following SLT and GI consults as above (9) History of cerebrovascular accident: Continue atorvastatin 10mg PO daily Consider Eliquis restarting as above (10) Hypertension: Hold amlodipine pending BP stability Admission and Anticipated Discharge Date Admission Date: January 23, 2021 Subjective this pt is non verbal but she did smile at me and make eye contract and appropriate gestures patient seems to communicate to me very clearly that she wishes to have no further therapy procedures and understands that without appropriate food and water she may in a shorter period of time. She seems to be accepting of this. Currently there is some arrangement of family meeting with our palliative care service to further discuss this as family is suspect of her decisions given her communication difficulty Review of Systems Review of Systems: Mild distress and fatigue no headache, no visual changes Patient continues to not have the desire to even attempt to swallow. no chest pain, pressure or palpitations no shortness of breath, cough or wheezes no abdominal pain, nausea or vomiting, diarrhea or constipation no dysuria, hematuria or frequency no focal joint pain or swelling no back pain, CVA tenderness or radicular pain no bruising, bleeding or rashes Physical Exam Physical Exam: The patient appeared petite and small statured but in no immediate distress Vital signs as documented. Head exam is normocephalic atraumatic Neck is without JVD, thyromegaly, or carotid bruits. Lungs are clear to auscultation, but diminished at the bases Cardiac exam, Rhythm is regular.. No murmurs, rubs or gallops. Abdominal exam reveals normal bowel sounds, soft non tender, no masses Extremities are nonedematous and both pedal pulses are present Neurologic exam is alert and follows commands, cannot speak except in occasional one word answers Skin is without bruises or rashes Results & Data Results & Data ([facility]) Vital Signs (Past 12 Hours) Vital Signs Temp Pulse Resp BP Pulse Ox 01/25/21 07:31 97.7 F 91 H 18 146/79 H 97 01/24/21 22:35 98.8 F 88 18 151/72 H 92 PG Care Time/CCT Total # of Minutes Spent Total Time Spent with Patient: Total time spent is greater than 50% in coordination of care (as documented) at patient's floor/unit and/or counseling patient: Coding Level of Care Code 91572 Subseq Hosp Care Lvl 2 Diagnoses Esophageal dysphagia R13.10 Hyponatremia E87.1 Pulmonary nodules/lesions, multiple R91.8 GERD (gastroesophageal reflux disease) K21.9 Thoracic compression fracture S22.000A Atrial fibrillation I48.91 Weakness R53.1 Severe protein-calorie malnutrition E43 History of cerebrovascular accident Z86.73 Hypertension I10
[2021-01-25] MEDS: LACTATED RINGER'S 1,000 ML IV SCH ×2 (08:33→20:15)
[2021-01-25] MEDS: ATORVASTATIN 10 MG TAB PO SCH (08:37)
[2021-01-25] MEDS: PANTOprazole 40 MG TAB PO SCH (08:37)
--- NOTE | 2021-01-25 12:33 | Palliative Care Progress Note ---
Date of Service January 25, 2021 Assessment & Plan (1) Palliative care encounter: I spoke with Sharron about our discussion yesterday. She again indicates that she would not want any testing or treatment. We talked about her swallowing difficulty and poor oral intake. It appears that she's approaching her dying time if she does not want further treatment or workup. When I talked with her about that, she nodded her head. I asked her if she was ready for her dying time and she again nodded her head. We talked about our discussion yesterday when she told me that she wanted to be at home for her dying time. She confirms that today. I spoke with her daughter, Sherrie, on the phone and relayed the details of our discussion. She is concerned that Sharron may not be consistently answering questions as she has done this in the past. She is coming in later today to visit her mother and will talk with her as well. We talked about possible hospice care if goal is for her to be at home with focus on comfort. She does not want to make this decision without her brothers and will talk with them. She will contact us after she visits with her mother and talks with her brothers. (2) Severe protein-calorie malnutrition: (3) Esophageal dysphagia: (4) History of cerebrovascular accident: (5) Atrial fibrillation: Admission and Anticipated Discharge Date Admission Date: January 23, 2021 Subjective Sharron denies pain or shortness of breath. She appears more withdrawn today than yesterday. Review of Systems Review of Systems: [place] Symptom Assessment Scale Pain0/3 Dyspnea 0/3 Anxiety 0/3 Nausea 0/3 Drowsiness 1/3 Fatigue 2/3 Palliative Performance Score 40% Physical Exam Constitutional: + frail appearing ENMT: Mouth: + dry oral mucous membranes Respiratory: normal respiratory effort; no labored breathing Musculoskeletal: Extremities: + muscle atrophy Skin: warm and dry Neurologic: awake; not confused nonverbal Results & Data ([facility]) Vital Signs (Past 12 Hours) Vital Signs Temp Pulse Resp BP Pulse Ox 01/25/21 07:31 97.7 F 91 H 18 146/79 H 97 PG Care Time/CCT Total # of Minutes Spent Total Time Spent with Patient: Total time spent is greater than 50% in coordination of care (as documented) at patient's floor/unit and/or counseling patient: Coding Level of Care Code 39634 Subseq Hosp Care Lvl 2 Diagnoses Palliative care encounter Z51.5 Severe protein-calorie malnutrition E43 Esophageal dysphagia R13.10 History of cerebrovascular accident Z86.73 Atrial fibrillation I48.91
[2021-01-25] MEDS ORDERED: MAGNESIUM SULFATE / D5W 1 GM/100 ML BAG IV ONE (17:30)
[2021-01-25 22:55] LABS: Appearance Urine Clear (Clear); Bilirubin Urine Negative (Negative); Blood Urine Negative (Negative); Color Urine Yellow; Glucose Urine UA Negative (Negative); Ketones Urine 3+ (Negative); Leukocyte Esterase Urine Negative (Negative); Nitrite Urine Negative (Negative); Protein Urine Negative (Negative); Urobilinogen Urine Negative (Negative)
[2021-01-26 06:32] LABS: Hematocrit (blood only) 41.6 % (37-47); Hemoglobin 14.5 g/dL (12.0-16.0); Mean Corpuscular Hemoglobin 28.8 pg (25-34); Mean Corpuscular Hgb Conc 34.9 g/dL (32-36); Mean Corpuscular Volume 82.7 fL (80-100); Mean Platelet Volume 9.7 fL (7.4-10.4); Platelet Count 326 K/uL (130-400); RDW Coefficient of Variation 13.5 % (11.5-14.5); RDW Standard Deviation 41.1 fL (36.4-46.3); Red Blood Count 5.03 M/uL (4.2-5.4); White Blood Count 11.56 K/uL (4.8-10.8)
[2021-01-26 07:03] LABS: Calcium 8.1 mg/dl (8.5-10.1); Est GFR (African American) 130.7 ml/min; Est GFR (Non-African American) 112.7 ml/min; Magnesium 1.7 mg/dl (1.8-2.4)
[2021-01-26] MEDS ORDERED: POTASSIUM CHLORIDE 10 MEQ / 100ML WTR IV STA (08:50)
[2021-01-26] MEDS: ATORVASTATIN 10 MG TAB PO SCH (08:52)
[2021-01-26] MEDS: PANTOprazole 40 MG TAB PO SCH (08:52)
[2021-01-26] MEDS: LACTATED RINGER'S 1,000 ML IV SCH ×2 (08:52→21:06)
--- NOTE | 2021-01-26 08:52 | Hospitalist Progress Note ---
Date of Service January 26, 2021 Assessment & Plan (1) Esophageal dysphagia: CT chest IMPRESSION: Emphysema. Bilateral upper lobe pulmonary lesions have not significantly changed as compared to 12/24/2020. These remain typical for multifocal pulmonary neoplasms. There is no evidence of superimposed airspace consolidation or pleural effusion. Secretions/debris are noted within the trachea. Hiatal hernia. A compression deformity of T10 is unchanged and appears subacute. Correlate for point tenderness. SLT feels patient will need esophagus cleared before any appropriate evaluation of speech could be undertaken however the patient is not permitting any further procedures invasive testing etc. therefore speech and language therapy feels the patient could pleasure eat if she wishes but does not feel restricting her diet at this point would be beneficial as the patient is leaning towards going on comfort measures and hospice with likely a short duration from now till her demise (2) Hyponatremia: concern if malignancy related, will check random urine sodium, did start some LR Patient is hypokalemic and hypomagnesemic replete 01/26/21 (3) Pulmonary nodules/lesions, multiple: Suspected metastatic primary lung vs. breast, send tumor markers. CEA is elevated to 10 Consult palliative care for goals of care Met with son Rai 01/24 after discussing with daughter on the phone. At the bedside the patient seen and convicted not want further work-up. The daughter and son are conflicted however because they feel that mom sometimes does not communicate in a straightforward way her wishes. After my interpretation of the bedside discussion I feel the patient does not want any further evaluation for this possibility of cancer. 01/25 palliative care, Dr Munguia discussed with daughter on phone, she is not convinced that her mother wants to enter into comfort care. Will have family meeting to further discuss (4) GERD (gastroesophageal reflux disease): Switch omeprazole for pantoprazole per hospital formulary (5) Thoracic compression fracture: MRI not pursued on last hospitalization. Consider MRI to assess for bone mets depending on palliative care discussion. (6) Atrial fibrillation: Currently in NSR Switch to Eliquis after decision regarding EGD and hemoglobin stability (recent GI bleed suspected) (7) Weakness: PT/OT (8) Severe protein-calorie malnutrition: dietary consult following SLT and GI consults as above (9) History of cerebrovascular accident: Continue atorvastatin 10mg PO daily Consider Eliquis restarting as above (10) Hypertension: Hold amlodipine pending BP stability Admission and Anticipated Discharge Date Admission Date: January 23, 2021 Subjective this pt remains very clearly that she wishes to have no further therapy procedures and understands that without appropriate food and water she may in a shorter period of time. She seems to be accepting of this. Currently there is some arrangement of family meeting with our palliative care service to further discuss this as family is suspect of her decisions given her communication difficulty however no defined plans were put in place yet Review of Systems Review of Systems: Mild distress and fatigue no headache, no visual changes Patient continues to not have the desire to even attempt to swallow. no chest pain, pressure or palpitations no shortness of breath, cough or wheezes no abdominal pain, nausea or vomiting, diarrhea or constipation no dysuria, hematuria or frequency no focal joint pain or swelling no back pain, CVA tenderness or radicular pain no bruising, bleeding or rashes Physical Exam Physical Exam: The patient appeared petite and small statured but in no immediate distress Vital signs as documented. Head exam is normocephalic atraumatic Neck is without JVD, thyromegaly, or carotid bruits. Lungs are clear to auscultation, but diminished at the bases Cardiac exam, Rhythm is regular.. No murmurs, rubs or gallops. Abdominal exam reveals normal bowel sounds, soft non tender, no masses Extremities are nonedematous and both pedal pulses are present Neurologic exam is alert and follows commands, cannot speak except in occasional one word answers Skin is without bruises or rashes Results & Data Results & Data ([facility]) Vital Signs (Past 12 Hours) Vital Signs Temp Pulse Resp BP Pulse Ox 01/26/21 07:08 97.7 F 82 16 137/59 L 91 01/25/21 22:44 98.2 F 86 17 148/73 H 94 PG Care Time/CCT Total # of Minutes Spent Total Time Spent with Patient: Total time spent is greater than 50% in coordin ation of care (as documented) at patient's floor/unit and/or counseling patient: Coding Level of Care Code 49542 Subseq Hosp Care Lvl 2 Diagnoses Esophageal dysphagia R13.10 Hyponatremia E87.1 Pulmonary nodules/lesions, multiple R91.8 GERD (gastroesophageal reflux disease) K21.9 Thoracic compression fracture S22.000A Atrial fibrillation I48.91 Weakness R53.1 Severe protein-calorie malnutrition E43 History of cerebrovascular accident Z86.73 Hypertension I10
[2021-01-26] MEDS ORDERED: MAGNESIUM SULFATE / D5W 1 GM/100 ML BAG IV ONE (09:15)
[2021-01-26] MEDS: POTASSIUM CHLORIDE / WTR 10 MEQ/100 ML PLCT IV SCH ×5 (09:15→13:24)
[2021-01-27 07:03] LABS: BUN Creatinine Ratio 13.2 (10-20); Calcium 8.2 mg/dl (8.5-10.1); Creatinine Clr Calc Pharmacy 121.5 ml/min; Est GFR (African American) 135.8 ml/min; Est GFR (Non-African American) 117.2 ml/min; Magnesium 1.7 mg/dl (1.8-2.4); Potassium 2.9 mmol/L (3.5-5.1)
[2021-01-27] MEDS ORDERED: POTASSIUM CHLORIDE 10 MEQ / 100ML WTR IV STA (08:35)
[2021-01-27] MEDS: POTASSIUM CHLORIDE / WTR 10 MEQ/100 ML PLCT IV SCH ×3 (08:56→12:33)
[2021-01-27] MEDS ORDERED: MAGNESIUM SULFATE / D5W 1 GM/100 ML BAG IV ONE (09:00)
[2021-01-27] MEDS: PANTOprazole 40 MG TAB PO SCH (09:11)
[2021-01-27] MEDS: ATORVASTATIN 10 MG TAB PO SCH (09:11)
[2021-01-27] MEDS: LACTATED RINGER'S 1,000 ML IV SCH (10:23)
--- NOTE | 2021-01-27 18:12 | Discharge Summary ---
Date of Service January 27, 2021 Admission HPI Per Admitting Provider Sharron Morales is a 80-year-old female who presents to the ER with fatigue, odynophagia, decreased appetite. She has been significantly generalized decline since her discharge on December 14, 2020 mainly with lethargy and decreased appetite. On that hospitalization she had a CT which was concerning for metastatic lung/breast cancer which she opted for no further workup. Her appetite has significantly become worse since but never had so much of a problem swallowing. Difficulty swallowing is new of today. She is aphasic from a prior stroke however she is able to answer yes and no questions appropriately and reports food getting stuck in her esophagus. New coarse cough today in addition. No odynophagia. No nausea, vomiting, diarrhea or constipation. She does note generalized abdominal pain. Lethar She was seen in the ER yesterday with a supratherapeutic INR and was discharged back home after CT A/P showed no acute process. She was given vitamin K 10mg PO yesterday in the ER. On her last hospitalization she was notably switched to Eliquis but given increasing lethargy concern for this new medication causing this so she was switched back to warfarin by her outpatient providers. Principal Diagnosis Dysphagia Lung mass patient refusing work-up Transferred home to hospice care Discharge Exam The patient appeared chronically ill Vital signs as documented. Lungs are diminished bilaterally Cardiac exam, Rhythm is regular.. Systolic murmur is heard Abdominal exam reveals normal bowel sounds, soft non tender, no masses Extremities are nonedematous and both pedal pulses are normal. Neurologic exam is alert and oriented over she cannot speak is been this way for 11 years since previous stroke Skin is without bruises or rashes Psychologically is without concerns for anxiety or depression. Discharge Data Allergies Allergy/AdvReac Type Severity Reaction Status Date / Time No Known Allergies Allergy Verified 01/22/21 13:12 Consultations 01/23/21 17:14 ED Decision to Admit Stat 01/23/21 20:18 Consult Palliative Care Routine Ordered Studies 01/23/21 14:50 CT head/brain wo con Stat 01/23/21 17:48 CT chest diagnostic w con Urgent Hospital Course (1) Esophageal dysphagia: CT chest IMPRESSION: Emphysema. Bilateral upper lobe pulmonary lesions have not significantly changed as compared to 12/24/2020. These remain typical for multifocal pulmonary neoplasms. There is no evidence of superimposed airspace consolidation or pleural effusion. Secretions/debris are noted within the trachea. Hiatal hernia. A compression deformity of T10 is unchanged and appears subacute. Correlate for point tenderness. Some conjecture if this could be an pathological fracture from possible metastatic disease SLT feels patient will need esophagus cleared before any appropriate evaluation of speech could be undertaken however the patient is not permitting any further procedures invasive testing etc. therefore speech and language therapy feels the patient could pleasure eat if she wishes but does not feel restricting her diet at this point would be beneficial as the patient is leaning towards going on comfort measures and hospice with likely a short duration from now till her demise (2) Hyponatremia: concern if malignancy related, will check random urine sodium, did start some LR Patient is hypokalemic and hypomagnesemic replete 01/26/21 (3) Pulmonary nodules/lesions, multiple: Suspected metastatic primary lung vs. breast, send tumor markers. CEA is elevated to 10 Consult palliative care for goals of care Met with son Rai 01/24 after discussing with daughter on the phone. At the bedside the patient seen and convicted not want further work-up. The daughter and son are conflicted however because they feel that mom sometimes does not communicate in a straightforward way her wishes. After my interpretation of the bedside discussion I feel the patient does not want any further evaluation for this possibility of cancer. I spoke to the patient's daughter on 01/26 they have self arrange for [facility] patient will be transition to their care in 01/27/2021 (4) GERD (gastroesophageal reflux disease): oral medications he is to do swallowing risk (5) Thoracic compression fracture: MRI not pursued on last hospitalization. Patient without much complaints of pain associate with this fracture (6) Atrial fibrillation: Currently in NSR Patient would not resume any anticoagulation due to her hospice state (7) Severe protein-calorie malnutrition: Patient is declining and progressing towards hospice care (8) History of cerebrovascular accident: Previous dysphagia issues likely resultant due to decline in her abilities and also progressive malignancy that is yet to be diagnosed (9) Hypertension: Total Time Total Time Spent Total Time Spent (In Minutes): It required greater than 30 minutes to prepare this patient for discharge, I did receive a call back from pharmacy having to recent some of her medications due to formulary restrictions at the pharmacy. This will explain the duplicate prescriptions on her discharge summary Discharge Plan Discharge Items Patient Disposition: Hospice - Home Reason For Visit: SUSPECTED LUNG CA, FAILURE TO THRIVE Discharge Diagnosis: dysphagia lung masses home with hospice care Activity: Per Instructions section Activity Comment: activity for pleasure only Non-emergency contact: Specialist Call non-emergency contact if: your pain is worsening Follow-up/Referrals: Paras Mccall [Primary Care Provider] - Diet: Regular Diet Texture: Easy to Chew Addtl Attending Provider Instructions: Please do not be shy about controlling pain or anxiety. Please be sure to ask as many questions as possible from the home hospice care services Pending Studies at Discharge: No Stand-Alone Forms: My [facility] Medications and DC Order Prescriptions: New morphine concentrate 10 mg/0.5 mL syringe 10 mg PO Q6H Qty: 50 RF: 0 scopolamine base [Transderm-Scop] 1 mg over 3 days patch 3 day 1 patch transdermal Q3D PRN (Reason: nausea and vomiting) Qty: 10 RF: 0 lorazepam [Ativan] 0.5 mg tablet 0.5 mg buccal TID PRN (Reason: anxiety) Qty: 10 RF: 0 ondansetron HCl [Zofran] 4 mg tablet 4 mg PO Q6H PRN (Reason: nausea and vomiting) Qty: 10 RF: 0 morphine concentrate 100 mg/5 mL (20 mg/mL) solution 10 mg PO Q6H Qty: 15 RF: 0 ondansetron 4 mg tablet,disintegrating 4 mg PO TID PRN (Reason: nausea and vomiting) Qty: 10 RF: 0 Discontinued ergocalciferol (vitamin D2) 1,250 mcg (50,000 unit) capsule 50,000 unit PO WK RF: 0 atorvastatin 10 mg tablet 10 mg PO QAM RF: 0 amlodipine 10 mg tablet 10 mg PO QAM RF: 0 potassium chloride [Klor-Con M20] 20 mEq tablet,ER particles/crystals 20 meq PO QAM RF: 0 escitalopram oxalate 10 mg tablet 10 mg PO DAILY RF: 0 omeprazole 20 mg capsule,delayed release(DR/EC) 20 mg PO QAM RF: 0 Discharge Orders: Discharge Order (Routine); Ordered 01/27/21 Ordered By: Nico Shea Admission Data Admit Date/Time: 01/23/21 18:07 Attending Provider: Nico Shea Admit Provider: Ryan Perez Primary Care Provider: Paras Mccall Other Providers: Ryan Perez ; Traci Munguia ; [facility] Other Interventions: Discharge Summary Assessment (RN) Last Done: 01/27/21 13:40 Coding Level of Care Code D/C Day Management >30 mins Diagnoses Esophageal dysphagia R13.10 Hyponatremia E87.1 Pulmonary nodules/lesions, multiple R91.8 GERD (gastroesophageal reflux disease) K21.9 Thoracic compression fracture S22.000A Atrial fibrillation I48.91 Severe protein-calorie malnutrition E43 History of cerebrovascular accident Z86.73 Hypertension I10
== END 2021-01-27 14:35 | disposition hospice, home (50) | DRG 391 ==
LOC: ED 14:04 → SUATTDRO 18:07 → 3W 18:07